=== PATIENT | female | born 1945 | race Caucasian/White ===

== ENCOUNTER → 2018-01-23 13:39 | Outpatient (CLI) | payer MEDICARE, OTHER, SELFPAY ==
--- NOTE | 2018-01-23 | DI.RAD.S_ITS ---
PROCEDURE: XR SHOULDER RT MIN 2V INDICATIONS: PAIN IN RT SHOULDER TECHNIQUE: 3 views of the shoulder were acquired. COMPARISON: None. FINDINGS: Bones: No fractures or dislocations. No suspicious bony lesions. Visualized ribs appear intact. Mild degenerative a.c. joint disease. Marginal spurring humeral head medially indicating glenohumeral joint disease. Soft tissues: No suspicious soft tissue calcifications. IMPRESSION: Degenerative arthritis of the a.c. and glenohumeral joints. Dictated by: Scott Rivero M.D. on 01/23/2018 at 15:39 Approved by: Scott Rivero M.D. on 01/23/2018 at 15:40
--- NOTE | 2018-01-23 | DI.RAD.S_ITS ---
PROCEDURE: XR HIP W PEL IF DONE LT MIN 4V INDICATIONS: BILAT PRIMARY OSTEOARTHRISTIS OF HIP TECHNIQUE: AP pelvis with lateral view(s) of the bilateral hip(s). COMPARISON: [facility], , HIP 2V RIGHT, 08/22/2014, 11:49. FINDINGS: Bones: No fractures or dislocations. Pelvic ring appears intact. No suspicious bony lesions. Degenerative hip joint disease with marginal spurring and subcortical cystic changes. No significant change from last exam. Mild osteitis pubis again noted. Soft tissues: The visualized bowel gas pattern is normal. No suspicious soft tissue calcifications. IMPRESSION: Grade 1 osteoarthritis of the hips. Dictated by: Scott Rivero M.D. on 01/23/2018 at 15:37 Approved by: Scott Rivero M.D. on 01/23/2018 at 15:39
[2018-01-23 14:41] LABS: Add Manual Diff / Slide Review NO; Basophils Percent Auto 0.7 % (0-2); Eosinophils Percent Auto 1.3 % (2-4); Hematocrit 41.2 % (36-46); Hemoglobin 13.9 g/dL (12.0-16.0); Lymphocytes Percent Auto 21.2 % (25-40); Mean Corpuscular HGB Conc 33.8 % (30-36); Mean Corpuscular Hemoglobin 28.8 PG (26-34); Mean Corpuscular Volume 85.1 fL (80-100); Monocytes Percent Auto 4.6 % (3-14); Neutrophils Absolute Auto 6500 /uL (3000-5900); Neutrophils Percent Auto 72.2 % (50-75); Platelet Count 224 X10^3/uL (150-400); Red Blood Cell Count 4.85 X10^6/uL (4.0-5.2); Red Cell Distribution Width 13.5 % (11.6-14.8)
[2018-01-23 15:01] LABS: Prothrombin Time 11.1 SECONDS (10.1-12.7)
[2018-01-23 15:09] LABS: Alanine Aminotransferase 25 IU/L (9-52); Albumin 4.1 g/dL (3.5-5.0); Alkaline Phosphatase 81 U/L (38-126); Aspartate Aminotransferase 28 IU/L (14-36); BUN Creatinine Ratio 23.8 (6-22); Bilirubin Total 0.6 mg/dL (0.2-1.3); Calcium 9.4 mg/dL (8.4-10.2); Estimated Glomerular Filt Rate > 60.0 mL/min (>60); Globulin 3.1 g/dL (1.7-4.1); Glucose 90 mg/dL (80-110); Potassium 4.3 mmol/L (3.4-5.1); Sodium 141 mmol/L (137-145); Total Protein 7.2 g/dL (6.3-8.2)
[2018-01-23 15:10] LABS: Albumin Globulin Ratio 1.3 (1.0-2.8); HEMOLYSIS < 15 (0-50)
== END ==
PROVIDERS: PCP Physician Assistant; Visit Provider Physician Assistant
DX: M25.511 Pain in right shoulder (principal); M16.0 Bilateral primary osteoarthritis of hip; R23.3 Spontaneous ecchymoses; M85.851 Other specified disorders of bone density and structure, right thigh; M19.011 Primary osteoarthritis, right shoulder
CPT/HCPCS: 36415; 73030; 73522; 77080; 80053; 85025; 85610

== ENCOUNTER → 2018-06-05 15:00 | Outpatient (CLI) | payer MEDICARE, OTHER, SELFPAY | PROVIDERS: PCP Physician Assistant | DX: Z23 Encounter for immunization (principal) | CPT/HCPCS: 90471; 90662 ==

== ENCOUNTER → 2018-11-09 10:41 | Outpatient (CLI) | payer MEDICARE, OTHER, SELFPAY ==
--- NOTE | 2018-11-09 | DI.MG.S_ITS ---
BILATERAL DIGITAL SCREENING MAMMOGRAM 3D/2D WITH CAD: 11/09/2018 CLINICAL: Routine screening. Family history of breast cancer. Comparison is made to exams dated: 10/13/2017 mammogram, 07/22/2016 mammogram, and 05/29/2014 mammogram - [facility]. There are scattered fibroglandular elements in both breasts. Current study was also evaluated with a Computer Aided Detection (CAD) system. There is an oval focal asymmetry in the right breast lower inner aspect anterior depth. There are increasing grouped punctate calcifications in the left breast upper outer aspect anterior depth. IMPRESSION: INCOMPLETE: NEEDS ADDITIONAL IMAGING EVALUATION The oval focal asymmetry in the right breast lower inner aspect anterior depth is indeterminate. Additional views with possible ultrasound are recommended. The increasing grouped punctate calcifications in the left breast upper outer aspect anterior depth are indeterminate but may represent a calcifying fibroadenoma. Magnification views as well as additional views with possible ultrasound are recommended. This exam was interpreted at Station ID: [id number]. NOTE: For mammograms, a report in lay terms will be sent to the patient. Approximately 15% of breast malignancies will not be visualized mammographically. In the management of a palpable breast mass, a negative mammogram must not discourage biopsy of a clinically suspicious lesion. Electronically Signed By: Jimbo Bryson M.D. ecl/:11/09/2018 16:37:21 letter sent: Additional Imaging Needed ACR BI-RADS Category 0: Incomplete 3340F
== END ==
PROVIDERS: PCP Physician Assistant; Visit Provider Physician Assistant
DX: Z12.31 Encounter for screening mammogram for malignant neoplasm of breast (principal); Z80.3 Family history of malignant neoplasm of breast
CPT/HCPCS: 77063; 77067

== ENCOUNTER → 2018-12-03 09:58 | Outpatient (CLI) | payer MEDICARE, OTHER, SELFPAY ==
--- NOTE | 2018-12-03 | DI.US.S_ITS ---
LIMITED ULTRASOUND OF RIGHT BREAST: 12/03/2018 CLINICAL: Patient returns today to evaluate a focal asymmetry in the right breast. Comparison is made to exams dated: 12/03/2018 mammogram, 11/09/2018 mammogram, 10/13/2017 mammogram, 07/22/2016 mammogram, 05/29/2014 mammogram, and 05/17/2013 mammogram - [facility]. Ultrasound of the right breast lower inner quadrant and retroareolar regions was performed. There is a dilated duct in the right breast at 4 o'clock in the retroareolar region which may correspond to the mammographic finding. There are no suspicious sonographic findings in the lower inner quadrant. IMPRESSION: BENIGN There is no sonographic evidence of malignancy. The dilated duct in the right breast is benign. Return to annual mammogram screening schedule is recommended. Findings and recommendations were conveyed to the patient. This exam was interpreted at Station ID: [id number]. Electronically Signed By: Fiona franco/:12/03/2018 16:17:02 letter sent: Normal Exam Ultrasound BI-RADS: 2 Benign
--- NOTE | 2018-12-03 | DI.US.S_ITS ---
LIMITED ULTRASOUND OF LEFT BREAST: 12/03/2018 CLINICAL: Patient returns today to evaluate a focal asymmetry in the left breast. Comparison is made to exams dated: 12/03/2018 mammogram, 11/09/2018 mammogram, 10/13/2017 mammogram, 07/22/2016 mammogram, 05/29/2014 mammogram, and 05/17/2013 mammogram - [facility]. Ultrasound of the left breast upper outer quadrant was performed. No abnormalities were seen sonographically in the left breast. IMPRESSION: NEGATIVE There is no sonographic evidence of malignancy. The mammographic finding appears benign, and probably represents degenerating fibroadenoma which is not well seen by ultrasound. Return to annual mammogram screening schedule is recommended. Findings and recommendations were conveyed to the patient. This exam was interpreted at Station ID: [id number]. Electronically Signed By: Fiona franco/:12/03/2018 16:19:56 letter sent: Normal Exam Ultrasound BI-RADS: 1 Negative
--- NOTE | 2018-12-03 | DI.MG.S_ITS ---
BILATERAL DIGITAL DIAGNOSTIC MAMMOGRAM 3D/2D WITH ADDITIONAL VIEWS: 12/03/2018 CLINICAL: Additional evaluation requested from prior study. Comparison is made to exams dated: 11/09/2018 mammogram, 10/13/2017 mammogram, and 07/22/2016 mammogram - [facility]. There are scattered fibroglandular elements in both breasts. There is a 4 mm oval focal asymmetry with a partially circumscribed margin in the right breast at 5 o'clock in the periareolar region at a superficial depth. There is a 3 mm focus of dystrophic punctate rim-like calcifications in the left breast at 1 o'clock anterior depth associated with a hypodense round structure. No other significant masses or calcifications are seen in either breast. IMPRESSION: INCOMPLETE: NEEDS ADDITIONAL IMAGING EVALUATION The 3 mm oval focal asymmetry in the right breast at 5 o'clock in the retroareolar region is indeterminate. An ultrasound is recommended which was performed. The 3 mm focus of calcifications in the left breast at 1 o'clock anterior depth has a differential diagnosis of a degenerating fibroadenoma and oil cyst but is indeterminate. An ultrasound is recommended which has been performed. This exam was interpreted at Station ID: [id number]. NOTE: For mammograms, a report in lay terms will be sent to the patient. Approximately 15% of breast malignancies will not be visualized mammographically. In the management of a palpable breast mass, a negative mammogram must not discourage biopsy of a clinically suspicious lesion. Electronically Signed By: Fiona franco/:12/03/2018 16:12:18 ACR BI-RADS Category 0: Incomplete 3340F
== END ==
PROVIDERS: PCP Physician Assistant; Visit Provider Physician Assistant
DX: R92.8 Other abnormal and inconclusive findings on diagnostic imaging of breast (principal); R92.1 Mammographic calcification found on diagnostic imaging of breast; N64.89 Other specified disorders of breast
CPT/HCPCS: 76642; 77066; G0279

== ENCOUNTER → 2019-06-20 15:52 | Outpatient (CLI) | payer MEDICARE, OTHER, SELFPAY | PROVIDERS: PCP Physician Assistant | DX: Z23 Encounter for immunization (principal) | CPT/HCPCS: 90471; 90662 ==

== ENCOUNTER → 2020-03-25 16:27 | Outpatient (CLI) | payer MEDICARE, OTHER, SELFPAY ==
--- NOTE | 2020-03-25 | DI.MG.S_ITS ---
BILATERAL DIGITAL SCREENING MAMMOGRAM 3D/2D WITH CAD: 03/25/2020 CLINICAL: Routine screening. Family history of breast cancer. Comparison is made to exams dated: 12/03/2018 mammogram, 11/09/2018 mammogram, and 10/13/2017 mammogram - [facility]. There are scattered fibroglandular elements in both breasts. Current study was also evaluated with a Computer Aided Detection (CAD) system. There are benign calcifications in both breasts. There also are biopsy clips in the right breast. No significant masses, calcifications, or other findings are seen in either breast. There has been no significant interval change. IMPRESSION: There is no mammographic evidence of malignancy. A 1 year screening mammogram is recommended. This exam was interpreted at Station ID: [id number]. NOTE: For mammograms, a report in lay terms will be sent to the patient. Approximately 15% of breast malignancies will not be visualized mammographically. In the management of a palpable breast mass, a negative mammogram must not discourage biopsy of a clinically suspicious lesion. Electronically Signed By: Isra loo/jas:03/25/2020 18:10:37 letter sent: Normal Exam ACR BI-RADS Category 2: Benign Finding(s) 3342F
== END ==
PROVIDERS: PCP Physician Assistant; Referring Provider Physician Assistant; Visit Provider Physician Assistant
DX: Z12.31 Encounter for screening mammogram for malignant neoplasm of breast (principal); Z80.3 Family history of malignant neoplasm of breast
CPT/HCPCS: 77063; 77067

== ENCOUNTER → 2020-06-11 | Outpatient (CLI) | payer MEDICARE, OTHER, SELFPAY | PROVIDERS: PCP Physician Assistant; Referring Provider Internal Medicine; Visit Provider Internal Medicine | DX: Z23 Encounter for immunization (principal) | CPT/HCPCS: 90471; 90662 ==

== ENCOUNTER → 2020-11-07 12:19 | Outpatient (CLI) | payer MEDICARE, OTHER, SELFPAY | PROVIDERS: PCP Physician Assistant; Visit Provider Nurse Practitioner | DX: N34.3 Urethral syndrome, unspecified (principal); N89.8 Other specified noninflammatory disorders of vagina | CPT/HCPCS: 87086; 87210 ==

== ENCOUNTER → 2020-12-03 13:00 | Outpatient (CLI) | payer MEDICARE, OTHER, SELFPAY | PROVIDERS: PCP Physician Assistant; Referring Provider Physician Assistant; Visit Provider Physician Assistant | DX: M85.862 Other specified disorders of bone density and structure, left lower leg (principal); M85.861 Other specified disorders of bone density and structure, right lower leg; M85.88 Other specified disorders of bone density and structure, other site; Z78.0 Asymptomatic menopausal state | CPT/HCPCS: 77080 ==

== ENCOUNTER 2021-03-25 13:30 | Outpatient (RCR) | payer MEDICARE, OTHER, SELFPAY ==
--- NOTE | 2021-01-15 17:46 | PT.OIE ---
Current Diagnoses Female genital prolapse, unspecified (01/15/21) Frequency of micturition (01/15/21) Past Medical History (Last Updated 12/10/20 @ 13:26 by Nadira Day MD) H/O vaginal delivery No significant medical problems Visit Care Team Role Provider Type Desi Suh PA-C Family Provider Non-Staff Primary Care Provider Specialty: Internal Medicine Address: [address] [place] [address], [id number] Email: [email or web address] Nadira Day MD Attending Provider Physician Referring Provider Specialty: MONTESSORI PARAPROFESSIONAL Address: [address] [place] [address], [address] Email: Physical Therapy Initial Evaluation PT-OP-A Visit Information Start: 01/12/21 17:25 Freq: Status: Active Protocol: Document 01/15/21 14:21 LRN (Rec: 01/15/21 17:45 LRN [id number]) Out-Patient Physical Therapy Visit Information Visit Information Visit Type Initial Evaluation Visit Start Time 14:23 Visit Stop Time 15:09 Total Visit Minutes 46 Visit Number 1 Evaluation Information Evaluation Date 01/15/21 Precautions Precautions Slight amount of vertigo, 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 PT-OP-B Current Condition Start: 01/12/21 17:25 Freq: Status: Active Protocol: Document 01/15/21 14:21 LRN (Rec: 01/15/21 17:45 LRN [id number]) Current Condition History of Current Condition Onset Date 2 months ago Current Complaints Pressure & urgency to urinate. History of Current Condition Has had problem for a long time, but became pronounced 2 months ago and pt thought she had vaginal infection, but found UA negative. Has pressure and urgency, but no pain with urination, ruled out UTI. i month ago saw Dr. James told to go PT to get ex 's that might work. Dr. Day said bladder has dropped. Has done ex's from a long time ago. Was doing PF ex's that was given to her at a PF class and did them on/off but is now doing them again. Looking in mirror at night can see directly bladder. In morning vagina is closed and can't see the bladder. Has had 3 vaginal childbirths without complications. Future Testing and Treatments Planned Pessary. Treatment Goals Patient/Caregiver Goals Pt goal is to reduce the cystocele with exercise Reduce urge and frequency. Pt states unrelated to this condition she wants to strength & do old PT ([employer]) exercises 3x/week. 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 Emeterio chi 5-6x/week Personal Factors Other Personal Factors That May Effect Osteopenia, Chronic Back pain, Therapy/Recovery arthritis, bruises easily. PT-OP-C Subjective Start: 01/12/21 17:25 Freq: Status: Active Protocol: Document 01/15/21 14:21 LRN (Rec: 01/15/21 17:45 LRN [id number]) Patient Questionnaires Pelvic Pain and Urgency/Frequency Patient Symptom Scale Pelvic Pain Score 7 PT-OP-I Pelvic Floor Start: 01/12/21 17:25 Freq: Status: Active Protocol: Document 01/15/21 14:21 LRN (Rec: 01/15/21 17:45 LRN [id number]) Pelvic Floor Assessment Urine Urinary Symptoms Prolapse,Falling Out Feeling/ Heavy Other Urinary Symptoms Not sure if she has incomplete emptying. Not a strong flow Leakage Size Small Leaks Per Day rarely Voiding Frequency 8-10 Nocturia 2 Pads Used In 24 Hours none Prolapse Cystocele Grade 2 Prolapse Comments Bladder is almost at vaginal opening, but does not extend past the opening in supine. Perineal Descent Resting Present Bearing Present Contraction Ability Voluntary Contraction Weak Manual Muscle Testing Left 0 Manual Muscle Testing Right 0 Manual Muscle Testing Anterior 0 Manual Muscle Testing Posterior 3 Comments Pelvic Floor Comments Endurance: Holds posterior PF contraction 10 secs, minimal contraction felt anteriorly and no contraction from lateral carson. Quick Contractions: Clements with 2 fingers in vaginal canal, but no contraction R lateral wall. PT-OP-J Posture/Palpation/Skin Start: 01/12/21 17:25 Freq: Status: Active Protocol: Document 01/15/21 14:21 LRN (Rec: 01/15/21 17:45 LRN [id number]) Posture Evaluation Position Standing Head/C-Spine Posture Forward Head T-Spine Posture Increased Kyphosis L-Spine Posture Flattened Shoulder Posture (L) Elevated Arm Posture (L) Neutral,(R) Neutral Pelvis Posture Anteriorly Tilted Weight Distribution Balanced Comments Posture Comments R breast is low, PT-OP-K Range of Motion Start: 01/12/21 17:25 Freq: Status: Active Protocol: Document 01/15/21 14:21 LRN (Rec: 01/15/21 17:45 LRN [id number]) Lumbar Spine Range of Motion Lumbar Spine Active Degrees Testing Position Standing Flexion 85 Extension 15 Rotation Left 20 Rotation Right 20 Lateral Flexion Left 10 Lateral Flexion Right 15 Comments 75 hip flex 10 hip ext Hip Goniometric Range of Motion Hip Right Passive Testing Position Supine Internal Rotation 25 External Rotation 80 Comments Decreased Ilipsoas length Left Passive Testing Position Supine Internal Rotation 30 External Rotation 75 PT-OP-M Strength Start: 01/12/21 17:25 Freq: Status: Active Protocol: Document 01/15/21 14:21 LRN (Rec: 01/15/21 17:45 LRN [id number]) Trunk Strength Trunk Manual Muscle Testing Testing Position Supine Core Stabilization Good stability during MMT of LE's. Hip Strength Hip Manual Muscle Testing Right Flexion (L2) 5 Normal Extension (S1) 5 Normal Abduction 4 Good Adduction 5 Normal External Rotation 4 Good Internal Rotation 4 Good Left Flexion (L2) 5 Normal Extension (S1) 5 Normal Abduction 5 Normal Adduction 3 Fair External Rotation 3 Fair Internal Rotation 4 Good PT-OP-Q Treatments Start: 01/12/21 17:25 Freq: Status: Active Protocol: Document 01/15/21 14:21 LRN (Rec: 01/15/21 17:45 LRN [id number]) Self-Care/Home Management Treatment Education Other Education Discussed results of evaluation, goals, and plan of care. Brief education discussion of abdominal pressures and education in use of breathing to decrease intra-abdominal pressure with transfers and exercise. Activities Self-Care/Home Management Activities Issued and reviewed with pt completion of bladder diary (2 forms) with explanations of each column heading for proper filling of form. Issued & reviewed HEP: Kegels for Quick Flicks and Long holds. PT-OP-T Assessment and Plan Start: 01/12/21 17:25 Freq: Status: Active Protocol: Document 01/15/21 14:21 LRN (Rec: 01/15/21 17:45 LRN [id number]) Physical Therapy Assessment Rehab Potential Rehabilitation Potential Fair Evaluation Complexity Number of Personal Factors/Comorbidities 3 or More Number of Body Systems Impaired 4 or More Clinical Presentation at Evaluation Evolving Impairments Impairments ROM,Strength Other Impairments Urinary frequency Urinary urge incontinence Goals Four Impairment Increased voiding frequency Short Term Goal (STG) Pt will be educated in inflammatory foods, foods to avoid, and recommended fluid guidelines. STG Duration 02/05/21 Cadd Instructor Goal (LTG) Decreased urinary frequency to every 2-3 hours or 7-8 times per day. LTG Duration 04/15/21 Three Impairment Decreased PF strength with grade 3 cystocele Short Term Goal (STG) Pt will be educated in proper breathing techniques for exercise and participating in appropriate exercises to decrease strain on PF. STG Duration 02/16/21 Cadd Instructor Goal (LTG) Reduce cystocele effects with exercise as noted by bladder hanging down. LTG Duration 04/15/21 Two Impairment Urge incontinence and increased frequency Short Term Goal (STG) Pt educated in proper PF care and urge delay technique. STG Duration 01/29/21 Jail Goal (LTG) Pt will have decreased urge incontinence and decreased pressure in pelvic region. LTG Duration 04/15/21 One Impairment Lacks appropriate self care HEP Short Term Goal (STG) Pt will be educated in proper breathing techniques with body mechanics and transfers. STG Duration 02/23/21 Cadd Instructor Goal (LTG) Pt will be independent in self care HEP of PF, hip and low back exercises. LTG Duration 04/15/21 Assessment Summary Assessment Pt is a 75 yo female who presents with a grade II cystocele as visualized in a supine position with urge incontinence and increased frequency of voiding. The pt will benefit from skilled physical therapy for pt education in a self care HEP, PF self care education, education in appropriate ex's for reducing stress on the PF, strengthening and coordination ex's for PF and LE's, flexibilty exercises and progression of PF strengthening. Manual therapy may be needed for PF soft tissues and for her low back pain and hip tightness. Physical Therapy Plan Frequency and Duration Frequency of Treatment 1x/Week Plan of Care Start Date 01/15/21 Plan of Care End Date 04/15/21 Therapeutic Interventions Therapeutic Interventions Coordination Training,Home Exercise Program,Manual Therapy,Neuromuscular Re- education,Patient/Caregiver Education,Self-Care/Home Management,Soft Tissue Mobilization,Therapeutic Activities,Therapeutic Exercises Next Visit Focus/Plan Next Note Type Treatment Note Next Visit Plan Review bladder diary and make recommendations as needed. Education in urge deference technique, breathing techniques with exercise, transfers and proper body mechanics. LE flexibility ( hip IR) & strengthening (AD/ER /IR left; AB/ER/IR right), progression of PF strengthening. Manual therapy may be needed for PF soft tissues of lateral carson, and for her low back pain. Possible use of E-Stim for PF contraction awareness training .
--- NOTE | 2021-01-15 17:46 | PT.OPPOC ---
Physical, Occupational & Speech Therapy At [facility] Current Diagnoses Female genital prolapse, unspecified (01/15/21) Frequency of micturition (01/15/21) Visit Care Team Role Provider Type Desi Suh PA-C Family Provider Non-Staff Primary Care Provider Specialty: Internal Medicine Address: [address] [place] [address], [id number] Email: [email or web address] Nadira Day MD Attending Provider Physician Referring Provider Specialty: PIN DRAFTER Address: [address] [place] [address], [address] Email: Plan Of Care PT-OP-T Assessment and Plan Start: 01/12/21 17:25 Freq: Status: Active Protocol: Document 01/15/21 14:21 LRN (Rec: 01/15/21 17:45 LRN [id number]) Physical Therapy Assessment Rehab Potential Rehabilitation Potential Fair Evaluation Complexity Number of Personal Factors/Comorbidities 3 or More Number of Body Systems Impaired 4 or More Clinical Presentation at Evaluation Evolving Impairments Impairments ROM,Strength Other Impairments Urinary frequency Urinary urge incontinence Goals Four Impairment Increased voiding frequency Short Term Goal (STG) Pt will be educated in inflammatory foods, foods to avoid, and recommended fluid guidelines. STG Duration 02/05/21 Petroleum Sampler Goal (LTG) Decreased urinary frequency to every 2-3 hours or 7-8 times per day. LTG Duration 04/15/21 Three Impairment Decreased PF strength with grade 3 cystocele Short Term Goal (STG) Pt will be educated in proper breathing techniques for exercise and participating in appropriate exercises to decrease strain on PF. STG Duration 02/16/21 Alf Goal (LTG) Reduce cystocele effects with exercise as noted by bladder hanging down. LTG Duration 04/15/21 Two Impairment Urge incontinence and increased frequency Short Term Goal (STG) Pt educated in proper PF care and urge delay technique. STG Duration 01/29/21 Petroleum Sampler Goal (LTG) Pt will have decreased urge incontinence and decreased pressure in pelvic region. LTG Duration 04/15/21 One Impairment Lacks appropriate self care HEP Short Term Goal (STG) Pt will be educated in proper breathing techniques with body mechanics and transfers. STG Duration 02/23/21 Petroleum Sampler Goal (LTG) Pt will be independent in self care HEP of PF, hip and low back exercises. LTG Duration 04/15/21 Assessment Summary Assessment Pt is a 75 yo female who presents with a grade II cystocele as visualized in a supine position with urge incontinence and increased frequency of voiding. The pt will benefit from skilled physical therapy for pt education in a self care HEP, PF self care education, education in appropriate ex's for reducing stress on the PF, strengthening and coordination ex's for PF and LE's, flexibilty exercises and progression of PF strengthening. Manual therapy may be needed for PF soft tissues and for her low back pain and hip tightness. Physical Therapy Plan Frequency and Duration Frequency of Treatment 1x/Week Plan of Care Start Date 01/15/21 Plan of Care End Date 04/15/21 Therapeutic Interventions Therapeutic Interventions Coordination Training,Home Exercise Program,Manual Therapy,Neuromuscular Re- education,Patient/Caregiver Education,Self-Care/Home Management,Soft Tissue Mobilization,Therapeutic Activities,Therapeutic Exercises Next Visit Focus/Plan Next Note Type Treatment Note Next Visit Plan Review bladder diary and make recommendations as needed. Education in urge deference technique, breathing techniques with exercise, transfers and proper body mechanics. LE flexibility ( hip IR) & strengthening (AD/ER /IR left; AB/ER/IR right), progression of PF strengthening. Manual therapy may be needed for PF soft tissues of lateral carson, and for her low back pain. Possible use of E-Stim for PF contraction awareness training . Plan of Care Dates Plan of Care Start Date 01/15/21 Plan of Care End Date 04/15/21 Electronically Signed by: Valentina Lowe, PT 01/15/21 1326 Please Sign and Return: I have reviewed this Plan of Care and certify that the skilled therapy services above are required to meet the patient?s needs. Physician Signature Date Printed Name and Credentials Clinical Instructor Signature Printed Name and Credentials
--- NOTE | 2021-01-20 15:19 | PT.OTN ---
Current Diagnoses Low back pain (01/20/21) Muscle weakness (generalized) (01/20/21) Female genital prolapse, unspecified (01/20/21) Frequency of micturition (01/20/21) Physical Therapy Treatment Note PT-OP-A Visit Information Start: 01/12/21 17:25 Freq: Status: Active Protocol: Document 01/20/21 09:07 LRN (Rec: 01/20/21 09:51 LRN [id number]) Out-Patient Physical Therapy Visit Information Visit Information Visit Type Treatment Note Visit Start Time 09:07 Visit Stop Time 09:48 Total Visit Minutes 41 Evaluation Information Evaluation Date 01/15/21 Precautions Precautions Slight amount of vertigo, 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 PT-OP-B Current Condition Start: 01/12/21 17:25 Freq: Status: Active Protocol: Document 01/15/21 14:21 LRN (Rec: 01/15/21 17:45 LRN [id number]) Current Condition History of Current Condition Onset Date 2 months ago Current Complaints Pressure & urgency to urinate. History of Current Condition Has had problem for a long time, but became pronounced 2 months ago and pt thought she had vaginal infection, but found UA negative. Has pressure and urgency, but no pain with urination, ruled out UTI. i month ago saw Dr. James told to go PT to get ex 's that might work. Dr. Day said bladder has dropped. Has done ex's from a long time ago. Was doing PF ex's that was given to her at a PF class and did them on/off but is now doing them again. Looking in mirror at night can see directly bladder. In morning vagina is closed and can't see the bladder. Has had 3 vaginal childbirths without complications. Future Testing and Treatments Planned Pessary. Treatment Goals Patient/Caregiver Goals Pt goal is to reduce the cystocele with exercise Reduce urge and frequency. Pt states unrelated to this condition she wants to strength & do old PT ([facility]) exercises 3x/week. 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 Emeterio chi 5-6x/week Personal Factors Other Personal Factors That May Effect Osteopenia, Chronic Back pain, Therapy/Recovery arthritis, bruises easily. PT-OP-C Subjective Start: 01/12/21 17:25 Freq: Status: Active Protocol: Document 01/20/21 09:07 LRN (Rec: 01/20/21 09:51 LRN [id number]) OP-PT Subjective Patient Comments Patient Comments Forgot bladder diary but has 2 days. States the stream dribbles so time to urinate is long. Doesn't feel she is empying her bladder (just urinated at home and feels she has to urinate again). Requests looking at lubricant from recommmendation by Dr. Padilla. PT-OP-I Pelvic Floor Start: 01/12/21 17:25 Freq: Status: Active Protocol: Document 01/20/21 09:07 LRN (Rec: 01/20/21 09:51 LRN [id number]) Pelvic Floor Assessment Prolapse Cystocele Grade 3 Prolapse Comments In standing bladder is protuding out of vaginal canal . PT-OP-J Posture/Palpation/Skin Start: 01/12/21 17:25 Freq: Status: Active Protocol: Document 01/15/21 14:21 LRN (Rec: 01/15/21 17:45 LRN [id number]) Posture Evaluation Position Standing Head/C-Spine Posture Forward Head T-Spine Posture Increased Kyphosis L-Spine Posture Flattened Shoulder Posture (L) Elevated Arm Posture (L) Neutral,(R) Neutral Pelvis Posture Anteriorly Tilted Weight Distribution Balanced Comments Posture Comments R breast is low, PT-OP-K Range of Motion Start: 01/12/21 17:25 Freq: Status: Active Protocol: Document 01/15/21 14:21 LRN (Rec: 01/15/21 17:45 LRN [id number]) Lumbar Spine Range of Motion Lumbar Spine Active Degrees Testing Position Standing Flexion 85 Extension 15 Rotation Left 20 Rotation Right 20 Lateral Flexion Left 10 Lateral Flexion Right 15 Comments 75 hip flex 10 hip ext Hip Goniometric Range of Motion Hip Right Passive Testing Position Supine Internal Rotation 25 External Rotation 80 Comments Decreased Ilipsoas length Left Passive Testing Position Supine Internal Rotation 30 External Rotation 75 PT-OP-M Strength Start: 01/12/21 17:25 Freq: Status: Active Protocol: Document 01/15/21 14:21 LRN (Rec: 01/15/21 17:45 LRN [id number]) Trunk Strength Trunk Manual Muscle Testing Testing Position Supine Core Stabilization Good stability during MMT of LE's. Hip Strength Hip Manual Muscle Testing Right Flexion (L2) 5 Normal Extension (S1) 5 Normal Abduction 4 Good Adduction 5 Normal External Rotation 4 Good Internal Rotation 4 Good Left Flexion (L2) 5 Normal Extension (S1) 5 Normal Abduction 5 Normal Adduction 3 Fair External Rotation 3 Fair Internal Rotation 4 Good PT-OP-Q Treatments Start: 01/12/21 17:25 Freq: Status: Active Protocol: Document 01/20/21 09:07 LRN (Rec: 01/20/21 09:51 LRN [id number]) Self-Care/Home Management Treatment Education Other Education Reviewed bladder diary and discussed recommendations to change in routine. Discussed use of lubricants to decrease Discussed options of care for prolapse Discussed at length pt activity level and ex's that she is doing (HEP, [employer]reg[employer] of ex, and Ex gym ex's). Educated pt in pelvic anatomy with model and handouts. Activities Self-Care/Home Management Activities I/S pt briefly in proper breathing with daily movements and transfers, and recommended pt avoid lifting arms overhead with ex, avoid abdominal strengthening and jumping/jogging ex's. I/S pt briefly for proper breathing with exercises on gregoria. PT-OP-T Assessment and Plan Start: 01/12/21 17:25 Freq: Status: Active Protocol: Document 01/20/21 09:07 LRN (Rec: 01/20/21 09:51 LRN [id number]) Physical Therapy Assessment Goals Four Impairment Increased voiding frequency Short Term Goal (STG) Pt will be educated in inflammatory foods, foods to avoid, and recommended fluid guidelines. STG Duration 02/05/21 Him Specialist Goal (LTG) Decreased urinary frequency to every 2-3 hours or 7-8 times per day. LTG Duration 04/15/21 Three Impairment Decreased PF strength with grade 3 cystocele Short Term Goal (STG) Pt will be educated in proper breathing techniques for exercise and participating in appropriate exercises to decrease strain on PF. (01/20/21: Pt educated in proper breathing technique for exercise, needs practical review) STG Duration 02/16/21 (01/20/21: Progressed ) Usp Goal (LTG) Reduce cystocele effects with exercise as noted by bladder hanging down. LTG Duration 04/15/21 Two Impairment Urge incontinence and increased frequency Short Term Goal (STG) Pt educated in proper PF care and urge delay technique. STG Duration 01/29/21 Usp Goal (LTG) Pt will have decreased urge incontinence and decreased pressure in pelvic region. LTG Duration 04/15/21 One Impairment Lacks appropriate self care HEP Short Term Goal (STG) Pt will be educated in proper breathing techniques with body mechanics and transfers. STG Duration 02/23/21 Usp Goal (LTG) Pt will be independent in self care HEP of PF, hip and low back exercises. LTG Duration 04/15/21 Assessment Summary Assessment Pt bladder in standing is protruding outside her vaginal canal. Supine, bladder at edge of vaginal canal. Pt redness on external PF, not visible internal vagina due to bladder. When assessing PF in supine, pt needed to urinate; therefore did not push bladder in to visualize for vaginal canal redness. Pt receptive to education and feels she needs more education . Pt reporting urinating first part of stream is normal 15-30 and last 1/2 is dribbling. 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 Physical Therapy Plan Frequency and Duration Frequency of Treatment 1x/Week Plan of Care Start Date 01/15/21 Plan of Care End Date 04/15/21 Next Visit Focus/Plan Next Note Type Treatment Note Next Visit Plan Review complete bladder diary and make recommendations as needed. Educate in inflammatory foods, foods to avoid, and recommended fluid guidelines, & in proper PF care and urge delay technique. Practice breathing techniques with transfers, proper body mechanics, and with exercise. Add to HEP: LE flexibility (hip IR) & strengthening (AD/ER/IR left; AB/ER/IR right), progression of PF strengthening. Manual therapy may be needed for PF soft tissues of lateral carson, and for her low back pain. Possible use of E-Stim for PF contraction awareness training .
--- NOTE | 2021-01-29 12:27 | PT.OTN ---
Current Diagnoses Low back pain (01/29/21) Muscle weakness (generalized) (01/29/21) Female genital prolapse, unspecified (01/29/21) Frequency of micturition (01/29/21) Physical Therapy Treatment Note PT-OP-A Visit Information Start: 01/12/21 17:25 Freq: Status: Active Protocol: Document 01/29/21 11:16 LRN (Rec: 01/29/21 12:26 LRN [id number]) Out-Patient Physical Therapy Visit Information Visit Information Visit Type Treatment Note Visit Start Time 11:16 Visit Stop Time 12:11 Total Visit Minutes 55 Visit Number 3 Evaluation Information Evaluation Date 01/15/21 Precautions Precautions Slight amount of vertigo, 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 PT-OP-B Current Condition Start: 01/12/21 17:25 Freq: Status: Active Protocol: Document 01/15/21 14:21 LRN (Rec: 01/15/21 17:45 LRN [id number]) Current Condition History of Current Condition Onset Date 2 months ago Current Complaints Pressure & urgency to urinate. History of Current Condition Has had problem for a long time, but became pronounced 2 months ago and pt thought she had vaginal infection, but found UA negative. Has pressure and urgency, but no pain with urination, ruled out UTI. i month ago saw Dr. James told to go PT to get ex 's that might work. Dr. Day said bladder has dropped. Has done ex's from a long time ago. Was doing PF ex's that was given to her at a PF class and did them on/off but is now doing them again. Looking in mirror at night can see directly bladder. In morning vagina is closed and can't see the bladder. Has had 3 vaginal childbirths without complications. Future Testing and Treatments Planned Pessary. Treatment Goals Patient/Caregiver Goals Pt goal is to reduce the cystocele with exercise Reduce urge and frequency. Pt states unrelated to this condition she wants to strength & do old PT ([facility]) exercises 3x/week. 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 Emeterio chi 5-6x/week Personal Factors Other Personal Factors That May Effect Osteopenia, Chronic Back pain, Therapy/Recovery arthritis, bruises easily. PT-OP-C Subjective Start: 01/12/21 17:25 Freq: Status: Active Protocol: Document 01/29/21 11:16 LRN (Rec: 01/29/21 12:26 LRN [id number]) OP-PT Subjective Patient Comments Patient Comments Pt to see Dr Day 02/15/21 and would like to have therapy after seeing her. Discussed with pt what she found in her research of options of care. States she does not leak. She is starting to feel discomfort in the PF in the opening. Thinks it might be pressure and soreness. PT-OP-I Pelvic Floor Start: 01/12/21 17:25 Freq: Status: Active Protocol: Document 01/20/21 09:07 LRN (Rec: 01/20/21 09:51 LRN [id number]) Pelvic Floor Assessment Prolapse Cystocele Grade 3 Prolapse Comments In standing bladder is protuding out of vaginal canal . PT-OP-J Posture/Palpation/Skin Start: 01/12/21 17:25 Freq: Status: Active Protocol: Document 01/15/21 14:21 LRN (Rec: 01/15/21 17:45 LRN [id number]) Posture Evaluation Position Standing Head/C-Spine Posture Forward Head T-Spine Posture Increased Kyphosis L-Spine Posture Flattened Shoulder Posture (L) Elevated Arm Posture (L) Neutral,(R) Neutral Pelvis Posture Anteriorly Tilted Weight Distribution Balanced Comments Posture Comments R breast is low, PT-OP-K Range of Motion Start: 01/12/21 17:25 Freq: Status: Active Protocol: Document 01/15/21 14:21 LRN (Rec: 01/15/21 17:45 LRN [id number]) Lumbar Spine Range of Motion Lumbar Spine Active Degrees Testing Position Standing Flexion 85 Extension 15 Rotation Left 20 Rotation Right 20 Lateral Flexion Left 10 Lateral Flexion Right 15 Comments 75 hip flex 10 hip ext Hip Goniometric Range of Motion Hip Right Passive Testing Position Supine Internal Rotation 25 External Rotation 80 Comments Decreased Ilipsoas length Left Passive Testing Position Supine Internal Rotation 30 External Rotation 75 PT-OP-M Strength Start: 01/12/21 17:25 Freq: Status: Active Protocol: Document 01/15/21 14:21 LRN (Rec: 01/15/21 17:45 LRN [id number]) Trunk Strength Trunk Manual Muscle Testing Testing Position Supine Core Stabilization Good stability during MMT of LE's. Hip Strength Hip Manual Muscle Testing Right Flexion (L2) 5 Normal Extension (S1) 5 Normal Abduction 4 Good Adduction 5 Normal External Rotation 4 Good Internal Rotation 4 Good Left Flexion (L2) 5 Normal Extension (S1) 5 Normal Abduction 5 Normal Adduction 3 Fair External Rotation 3 Fair Internal Rotation 4 Good PT-OP-Q Treatments Start: 01/12/21 17:25 Freq: Status: Active Protocol: Document 01/29/21 11:16 LRN (Rec: 01/29/21 12:26 LRN [id number]) Therapeutic Exercises Supine Exercises Deep Breathing Supine Exercise Name Deep Breathing, 5 sec breaths Reps/Minutes 4' Wedge/PF contraction Supine Exercise Name Wedge PF contraction Reps/Minutes 6' Comments Phys cuing and v cuing at vagina Wedge/roll in/out with DB/TB &towel roll Supine Exercise Name Wedge/roll in/out with DB/TB & towel rol Side bilateral Reps/Minutes 8' Comments Extra time for training Standing Exercises PF/Hamstring stretch Standing Exercise Name PF/Hamstring stretch Reps/Minutes 7' Comments Much v cuing for positioning, holding, vernon, relaxing . Self-Care/Home Management Treatment Education Patient Education Home Exercise Program Other Education Reveiw and discussion of PF bladder diary. Discussed with pt what she found in her research of options of care. Discussed if therapy will be helpful if she decides to use a pessary. Discussed plan of care with pt agreeable to continue therapy through March for further strengthening. Activities Self-Care/Home Management Activities Issued & reviewed HEP: LE roll in/outs on wedge: Alignment, Deep Breathing (DB) , Abdominal action throug DB & Abdominal action theorugh Pelvic Floor ex. Handout for standing Hamstring stretch for PF strengthening positioning. Reviewed pt's existing ex's with recommendations of modifications or dc of ex. PT-OP-T Assessment and Plan Start: 01/12/21 17:25 Freq: Status: Active Protocol: Document 01/29/21 11:16 LRN (Rec: 01/29/21 12:26 LRN [id number]) Physical Therapy Assessment Goals Four Impairment Increased voiding frequency Short Term Goal (STG) Pt will be educated in inflammatory foods, foods to avoid, and recommended fluid guidelines. STG Duration 02/05/21 Senior Analyst Goal (LTG) Decreased urinary frequency to every 2-3 hours or 7-8 times per day. LTG Duration 04/15/21 Three Impairment Decreased PF strength with grade 3 cystocele Short Term Goal (STG) Pt will be educated in proper breathing techniques for exercise and participating in appropriate exercises to decrease strain on PF. (01/20/21: Pt educated in proper breathing technique for exercise, needs practical review) STG Duration 02/16/21 (01/20/21: Progressed ) Senior Analyst Goal (LTG) Reduce cystocele effects with exercise as noted by bladder hanging down. LTG Duration 04/15/21 (01/29/21: Progressing) Two Impairment Urge incontinence and increased frequency Short Term Goal (STG) Pt educated in proper PF care and urge delay technique. STG Duration 01/29/21 Residential Goal (LTG) Pt will have decreased urge incontinence and decreased pressure in pelvic region. LTG Duration 04/15/21 One Impairment Lacks appropriate self care HEP Short Term Goal (STG) Pt will be educated in proper breathing techniques with body mechanics and transfers. STG Duration 02/23/21 Senior Analyst Goal (LTG) Pt will be independent in self care HEP of PF, hip and low back exercises. LTG Duration 04/15/21 Assessment Summary Assessment Held review of bladder diary due to pt's need to discuss plan of care, recommendations of alternative care (surgery, pessary vs PT) and review of her self care program. Pt agreeable to learning more PF strengthening ex's prior to use of pessary. Pt felt she was able to have bladder pulled up in standing HS stretch position and held until almost upright. Pt may not need discussion on fo Physical Therapy Plan Frequency and Duration Frequency of Treatment 1x/Week Plan of Care Start Date 01/15/21 Plan of Care End Date 04/15/21 Next Visit Focus/Plan Next Note Type Treatment Note Next Visit Plan Review complete bladder diary from last session and make recommendations as needed. If needed: Educate in inflammatory foods, foods to avoid, and recommended fluid guidelines, & in proper PF care and urge delay technique. Review proper breathing techniques with transfers, proper body mechanics, and with exercise. Add to HEP: LE flexibility (hip IR) & strengthening (AD/ER/IR left; AB/ER/IR right), progression of PF strengthening. Manual therapy may be needed for PF soft tissues of lateral carson, and for her low back pain. Use of E-Stim for PF contraction awareness training if PF tissue health is good.
--- NOTE | 2021-02-12 12:24 | PT.OTN ---
Current Diagnoses Low back pain (02/12/21) Muscle weakness (generalized) (02/12/21) Female genital prolapse, unspecified (02/12/21) Frequency of micturition (02/12/21) Physical Therapy Treatment Note PT-OP-A Visit Information Start: 01/12/21 17:25 Freq: Status: Active Protocol: Document 02/12/21 11:23 LRN (Rec: 02/12/21 12:23 LRN [id number]) Out-Patient Physical Therapy Visit Information Visit Information Visit Type Treatment Note Visit Start Time 11:23 Visit Stop Time 12:04 Total Visit Minutes 41 Visit Number 4 Evaluation Information Evaluation Date 01/15/21 Precautions Precautions Slight amount of vertigo, 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 PT-OP-B Current Condition Start: 01/12/21 17:25 Freq: Status: Active Protocol: Document 01/15/21 14:21 LRN (Rec: 01/15/21 17:45 LRN [id number]) Current Condition History of Current Condition Onset Date 2 months ago Current Complaints Pressure & urgency to urinate. History of Current Condition Has had problem for a long time, but became pronounced 2 months ago and pt thought she had vaginal infection, but found UA negative. Has pressure and urgency, but no pain with urination, ruled out UTI. i month ago saw Dr. James told to go PT to get ex 's that might work. Dr. Day said bladder has dropped. Has done ex's from a long time ago. Was doing PF ex's that was given to her at a PF class and did them on/off but is now doing them again. Looking in mirror at night can see directly bladder. In morning vagina is closed and can't see the bladder. Has had 3 vaginal childbirths without complications. Future Testing and Treatments Planned Pessary. Treatment Goals Patient/Caregiver Goals Pt goal is to reduce the cystocele with exercise Reduce urge and frequency. Pt states unrelated to this condition she wants to strength & do old PT ([facility]) exercises 3x/week. 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 Emeterio chi 5-6x/week Personal Factors Other Personal Factors That May Effect Osteopenia, Chronic Back pain, Therapy/Recovery arthritis, bruises easily. PT-OP-C Subjective Start: 01/12/21 17:25 Freq: Status: Active Protocol: Document 02/12/21 11:23 LRN (Rec: 02/12/21 12:23 LRN [id number]) OP-PT Subjective Patient Comments Patient Comments States she notes no change. Seeing Dr Fellow 02/15/21. has questions regarding therapy and pessary. PT-OP-I Pelvic Floor Start: 01/12/21 17:25 Freq: Status: Active Protocol: Document 01/20/21 09:07 LRN (Rec: 01/20/21 09:51 LRN [id number]) Pelvic Floor Assessment Prolapse Cystocele Grade 3 Prolapse Comments In standing bladder is protuding out of vaginal canal . PT-OP-J Posture/Palpation/Skin Start: 01/12/21 17:25 Freq: Status: Active Protocol: Document 01/15/21 14:21 LRN (Rec: 01/15/21 17:45 LRN [id number]) Posture Evaluation Position Standing Head/C-Spine Posture Forward Head T-Spine Posture Increased Kyphosis L-Spine Posture Flattened Shoulder Posture (L) Elevated Arm Posture (L) Neutral,(R) Neutral Pelvis Posture Anteriorly Tilted Weight Distribution Balanced Comments Posture Comments R breast is low, PT-OP-K Range of Motion Start: 01/12/21 17:25 Freq: Status: Active Protocol: Document 01/15/21 14:21 LRN (Rec: 01/15/21 17:45 LRN [id number]) Lumbar Spine Range of Motion Lumbar Spine Active Degrees Testing Position Standing Flexion 85 Extension 15 Rotation Left 20 Rotation Right 20 Lateral Flexion Left 10 Lateral Flexion Right 15 Comments 75 hip flex 10 hip ext Hip Goniometric Range of Motion Hip Right Passive Testing Position Supine Internal Rotation 25 External Rotation 80 Comments Decreased Ilipsoas length Left Passive Testing Position Supine Internal Rotation 30 External Rotation 75 PT-OP-M Strength Start: 01/12/21 17:25 Freq: Status: Active Protocol: Document 01/15/21 14:21 LRN (Rec: 01/15/21 17:45 LRN [id number]) Trunk Strength Trunk Manual Muscle Testing Testing Position Supine Core Stabilization Good stability during MMT of LE's. Hip Strength Hip Manual Muscle Testing Right Flexion (L2) 5 Normal Extension (S1) 5 Normal Abduction 4 Good Adduction 5 Normal External Rotation 4 Good Internal Rotation 4 Good Left Flexion (L2) 5 Normal Extension (S1) 5 Normal Abduction 5 Normal Adduction 3 Fair External Rotation 3 Fair Internal Rotation 4 Good PT-OP-Q Treatments Start: 01/12/21 17:25 Freq: Status: Active Protocol: Document 02/12/21 11:23 LRN (Rec: 02/12/21 12:23 LRN [id number]) Therapeutic Exercises Supine Exercises Regular breathing Supine Exercise Name Regular breathing for exercise Reps/Minutes 10' Comments Much v cuing and some phy cuing for rib mvmt with breathing Neuro Re-Education Treatment Other Activities Standing postural training Details Postural training w/mirror on level and slight incline Reps/Duration 15' Self-Care/Home Management Treatment Education Other Education Discussion patient directed for PT plan of care. Discussion of pessary use with PT. Discussion of breathing mechanics and proper breathing with ex. Activities Self-Care/Home Management Activities I/S pt in pt area of focus to minimize bladder prolapse: proper breathing & breathing with exercise to minimze bladder prolapse. I/S pt in posture retraining at home using visual and standing on incline for biofeedback of improved standing posture. PT-OP-T Assessment and Plan Start: 01/12/21 17:25 Freq: Status: Active Protocol: Document 02/12/21 11:23 LRN (Rec: 02/12/21 12:23 LRN [id number]) Physical Therapy Assessment Goals Four Impairment Increased voiding frequency Short Term Goal (STG) Pt will be educated in inflammatory foods, foods to avoid, and recommended fluid guidelines. STG Duration 02/05/21 Bill Recapitulation Clerk Goal (LTG) Decreased urinary frequency to every 2-3 hours or 7-8 times per day. LTG Duration 04/15/21 Three Impairment Decreased PF strength with grade 3 cystocele Short Term Goal (STG) Pt will be educated in proper breathing techniques for exercise and participating in appropriate exercises to decrease strain on PF. (01/20/21: Pt educated in proper breathing technique for exercise, needs practical review) STG Duration 02/16/21 (01/20/21: Progressed ) Bill Recapitulation Clerk Goal (LTG) Reduce cystocele effects with exercise as noted by bladder hanging down. LTG Duration 04/15/21 (01/29/21: Progressing) Two Impairment Urge incontinence and increased frequency Short Term Goal (STG) Pt educated in proper PF care and urge delay technique. STG Duration 01/29/21 Long-Term Goal (LTG) Pt will have decreased urge incontinence and decreased pressure in pelvic region. LTG Duration 04/15/21 One Impairment Lacks appropriate self care HEP Short Term Goal (STG) Pt will be educated in proper breathing techniques with body mechanics and transfers. STG Duration 02/23/21 Bill Recapitulation Clerk Goal (LTG) Pt will be independent in self care HEP of PF, hip and low back exercises. LTG Duration 04/15/21 Progress Towards Goals Progress Comments Posture training Breathing training Assessment Summary Assessment Pt had many questions regarding pessary use and roll of PT if s/p pessary placement. Pt has difficulty with breathing of rib expansion for exercise. She has fears of loss of core strength with breathing during exercise. Pt needs correction of breathing type and to not breath hold during ex and to correct posture ( posterior pelvic tilt with sway back in standing). Physical Therapy Plan Frequency and Duration Frequency of Treatment 1x/Week Plan of Care Start Date 01/15/21 Plan of Care End Date 04/15/21 Next Visit Focus/Plan Next Note Type Treatment Note Next Visit Plan Educate (Goal #4 & #3) pt in Urinary delay technique & of inflammatory foods, foods to avoid, and recommended fluid guidelines. 1-2 session training in proper breathing techniques with transfers ( Goal #1), proper body mechanics, and with her current exercise program. Add PF Roll in/out strengthening. Add to HEP: LE flexibility (hip IR) & strengthening (AD/ ER/IR left; AB/ER/IR right).
--- NOTE | 2021-02-19 17:05 | PT.OTN ---
Current Diagnoses Low back pain (02/19/21) Muscle weakness (generalized) (02/19/21) Female genital prolapse, unspecified (02/19/21) Frequency of micturition (02/19/21) Physical Therapy Treatment Note PT-OP-A Visit Information Start: 01/12/21 17:25 Freq: Status: Active Protocol: Document 02/19/21 11:19 LRN (Rec: 02/19/21 12:07 LRN [id number]) Out-Patient Physical Therapy Visit Information Visit Information Visit Type Treatment Note Visit Start Time 11:19 Visit Stop Time 12:07 Total Visit Minutes 48 Visit Number 5 Evaluation Information Evaluation Date 01/15/21 Precautions Precautions Slight amount of vertigo, 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 PT-OP-B Current Condition Start: 01/12/21 17:25 Freq: Status: Active Protocol: Document 01/15/21 14:21 LRN (Rec: 01/15/21 17:45 LRN [id number]) Current Condition History of Current Condition Onset Date 2 months ago Current Complaints Pressure & urgency to urinate. History of Current Condition Has had problem for a long time, but became pronounced 2 months ago and pt thought she had vaginal infection, but found UA negative. Has pressure and urgency, but no pain with urination, ruled out UTI. i month ago saw Dr. James told to go PT to get ex 's that might work. Dr. Day said bladder has dropped. Has done ex's from a long time ago. Was doing PF ex's that was given to her at a PF class and did them on/off but is now doing them again. Looking in mirror at night can see directly bladder. In morning vagina is closed and can't see the bladder. Has had 3 vaginal childbirths without complications. Future Testing and Treatments Planned Pessary. Treatment Goals Patient/Caregiver Goals Pt goal is to reduce the cystocele with exercise Reduce urge and frequency. Pt states unrelated to this condition she wants to strength & do old PT ([facility]) exercises 3x/week. 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 Emeterio chi 5-6x/week Personal Factors Other Personal Factors That May Effect Osteopenia, Chronic Back pain, Therapy/Recovery arthritis, bruises easily. PT-OP-C Subjective Start: 01/12/21 17:25 Freq: Status: Active Protocol: Document 02/19/21 11:19 LRN (Rec: 02/19/21 12:07 LRN [id number]) OP-PT Subjective Patient Comments Patient Comments Saw Dr. Day and is on estrogen creme. States she didn't see any difference and will try a pessary. Pt requests holding PT until after pessary placed for review of ex's and continuation to see if strengthening of PF would be helpful after pessary placement. PT-OP-I Pelvic Floor Start: 01/12/21 17:25 Freq: Status: Active Protocol: Document 01/20/21 09:07 LRN (Rec: 01/20/21 09:51 LRN [id number]) Pelvic Floor Assessment Prolapse Cystocele Grade 3 Prolapse Comments In standing bladder is protuding out of vaginal canal . PT-OP-J Posture/Palpation/Skin Start: 01/12/21 17:25 Freq: Status: Active Protocol: Document 01/15/21 14:21 LRN (Rec: 01/15/21 17:45 LRN [id number]) Posture Evaluation Position Standing Head/C-Spine Posture Forward Head T-Spine Posture Increased Kyphosis L-Spine Posture Flattened Shoulder Posture (L) Elevated Arm Posture (L) Neutral,(R) Neutral Pelvis Posture Anteriorly Tilted Weight Distribution Balanced Comments Posture Comments R breast is low, PT-OP-K Range of Motion Start: 01/12/21 17:25 Freq: Status: Active Protocol: Document 01/15/21 14:21 LRN (Rec: 01/15/21 17:45 LRN [id number]) Lumbar Spine Range of Motion Lumbar Spine Active Degrees Testing Position Standing Flexion 85 Extension 15 Rotation Left 20 Rotation Right 20 Lateral Flexion Left 10 Lateral Flexion Right 15 Comments 75 hip flex 10 hip ext Hip Goniometric Range of Motion Hip Right Passive Testing Position Supine Internal Rotation 25 External Rotation 80 Comments Decreased Ilipsoas length Left Passive Testing Position Supine Internal Rotation 30 External Rotation 75 PT-OP-M Strength Start: 01/12/21 17:25 Freq: Status: Active Protocol: Document 01/15/21 14:21 LRN (Rec: 01/15/21 17:45 LRN [id number]) Trunk Strength Trunk Manual Muscle Testing Testing Position Supine Core Stabilization Good stability during MMT of LE's. Hip Strength Hip Manual Muscle Testing Right Flexion (L2) 5 Normal Extension (S1) 5 Normal Abduction 4 Good Adduction 5 Normal External Rotation 4 Good Internal Rotation 4 Good Left Flexion (L2) 5 Normal Extension (S1) 5 Normal Abduction 5 Normal Adduction 3 Fair External Rotation 3 Fair Internal Rotation 4 Good PT-OP-Q Treatments Start: 01/12/21 17:25 Freq: Status: Active Protocol: Document 02/19/21 11:19 LRN (Rec: 02/19/21 12:07 LRN [id number]) Therapeutic Exercises Sitting Exercises LE roll in/out w/PF/Breathing Sitting Exercise Name LE roll in/out handout reviewed for PF strengthening and cuing for breathin Reps/Minutes 2' Standing Exercises Heel Raises w/PF contraction Standing Exercise Name Heel raises w/PF contraction and cuing for breathing Reps/Minutes 2' Plie w/PF contraction Standing Exercise Name Plie w/PF contraction Reps/Minutes 3' Therapeutic Activity Therapeutic Activity Transfer training w/breathing Name Proper breathing technique with Sit <> Stand, squat/ bending Reps/Minutes 8' Self-Care/Home Management Treatment Education Patient Education Home Exercise Program Other Education Discussed at length areas of PT care following placement of pessary. Discussed at length abdominal canister and deep breathing mechanics as it relates to ex, PF, and other possible physical conditions (ie-hernia 's, disc protrusions). Re-educated pt in mechanics of the core canister as it relates to PF/pressure changes . Educated pt in PF contractions with daily and routine activities and exercise. Reviewed briefly pt's HEP of: supine LE roll in/out. Issued & discussed handouts: Bladder retrainig & bladder irritant food/drinks. Educated pt in use of urinary delay technique to avoid urinary leakage with strong urge. Discussed and educated pt in postural awareness and methods to improve posture in sitting (back support or sitting on edge of surface) and in standing (general awareness or reverse incline). Educated pt in proper breathing techniques with body mechanics and transfers. Activities Self-Care/Home Management Activities Issued & reviewed HEP: Sitting PF ex (roll in/out) and standing PF ex's (Plie & ball squeeze). Reviewed supine LE roll in/out on wedge . PT-OP-T Assessment and Plan Start: 01/12/21 17:25 Freq: Status: Active Protocol: Document 02/19/21 11:19 LRN (Rec: 02/19/21 12:07 LRN [id number]) Physical Therapy Assessment Goals Four Impairment Increased voiding frequency Short Term Goal (STG) Pt will be educated in inflammatory foods, foods to avoid, and recommended fluid guidelines. STG Duration 02/05/21 (02/19/21: MET GOAL) Historian Research Assistant Goal (LTG) Decreased urinary frequency to every 2-3 hours or 7-8 times per day. LTG Duration 04/15/21 Three Impairment Decreased PF strength with grade 3 cystocele Short Term Goal (STG) Pt will be educated in proper breathing techniques for exercise and participating in appropriate exercises to decrease strain on PF. (02/19/21: Practical review of proper breathing with transfers and as instructed with exercise based on movement exertion and post exertion) STG Duration 02/16/21 (02/19/21: MET GOAL) Care Home Goal (LTG) Reduce cystocele effects with exercise as noted by bladder hanging down. LTG Duration 04/15/21 (01/29/21: Progressing) Two Impairment Urge incontinence and increased frequency Short Term Goal (STG) Pt educated in proper PF care and urge delay technique. STG Duration 01/29/21 (02/19/21: MET GOAL ) Care Home Goal (LTG) Pt will have decreased urge incontinence and decreased pressure in pelvic region. LTG Duration 04/15/21 One Impairment Lacks appropriate self care HEP Short Term Goal (STG) Pt will be educated in proper breathing techniques with body mechanics and transfers. STG Duration 02/23/21 (02/19/21: MET GOAL ) Historian Research Assistant Goal (LTG) Pt will be independent in self care HEP of PF, hip and low back exercises. (02/19/21: HEP issued of PF ex 's) LTG Duration 04/15/21 (02/19/21: Progressed) Progress Towards Goals Progress Comments STG #4 MET. Pt educated in inflammatory foods, foods to avoid, and recommended fluid guidelines. STG #3 MET. Pt educated in proper breathing techniques for exercise and participating in appropriate exercises to decrease strain on PF STG #1 MET. Pt educated in proper body mechanics, and with her current exercise program, she has been previously educated with transfers. Reviewed PF Roll in/out PF strengthening. Assessment Summary Assessment To start, pt needed much review of proper breathing with transfers and daily activities to minimize stress on PF, as well as proper posturing to promote anterior pelvic tilt and facilitate anterior PF strengthening. The pt would benefit from improved awareness of her posture with corrections and proper breathing with daily activities to minimize stress on the PF. Pt concerned over pessary placement and possible benefits of continue PF strengthening with pessary in place. Pt might benefit from 1-2 more visits to help make pt more aware of her max ex tolerance. Physical Therapy Plan Frequency and Duration Frequency of Treatment 1x/Week Plan of Care Start Date 01/15/21 Plan of Care End Date 04/15/21 Next Visit Focus/Plan Next Note Type Treatment Note Next Visit Plan 1-2 visits post pessary placement for 1) Review of self care program with pessary in to modify ex's as needed for comfort, 2) Addition of ex 's to improve bladder positioning to decrease frequency of voiding. Add to HEP: LE flexibility (hip IR) & strengthening (AD/ER/IR left; AB/ER/IR right).
--- NOTE | 2021-03-25 16:13 | PT.OTN ---
Current Diagnoses Low back pain (03/25/21) Muscle weakness (generalized) (03/25/21) Female genital prolapse, unspecified (03/25/21) Frequency of micturition (03/25/21) Physical Therapy Treatment Note PT-OP-A Visit Information Start: 01/12/21 17:25 Freq: Status: Active Protocol: Document 03/25/21 13:43 LRN (Rec: 03/25/21 14:39 LRN [id number]) Out-Patient Physical Therapy Visit Information Visit Information Visit Type Treatment Note Visit Start Time 13:43 Visit Stop Time 14:39 Total Visit Minutes 46 Visit Number 6 Evaluation Information Evaluation Date 01/15/21 Precautions Precautions Slight amount of vertigo, 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 PT-OP-B Current Condition Start: 01/12/21 17:25 Freq: Status: Active Protocol: Document 01/15/21 14:21 LRN (Rec: 01/15/21 17:45 LRN [id number]) Current Condition History of Current Condition Onset Date 2 months ago Current Complaints Pressure & urgency to urinate. History of Current Condition Has had problem for a long time, but became pronounced 2 months ago and pt thought she had vaginal infection, but found UA negative. Has pressure and urgency, but no pain with urination, ruled out UTI. i month ago saw Dr. James told to go PT to get ex 's that might work. Dr. Day said bladder has dropped. Has done ex's from a long time ago. Was doing PF ex's that was given to her at a PF class and did them on/off but is now doing them again. Looking in mirror at night can see directly bladder. In morning vagina is closed and can't see the bladder. Has had 3 vaginal childbirths without complications. Future Testing and Treatments Planned Pessary. Treatment Goals Patient/Caregiver Goals Pt goal is to reduce the cystocele with exercise Reduce urge and frequency. Pt states unrelated to this condition she wants to strength & do old PT ([facility]) exercises 3x/week. 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 Emeterio chi 5-6x/week Personal Factors Other Personal Factors That May Effect Osteopenia, Chronic Back pain, Therapy/Recovery arthritis, bruises easily. PT-OP-C Subjective Start: 01/12/21 17:25 Freq: Status: Active Protocol: Document 03/25/21 13:43 LRN (Rec: 03/25/21 14:39 LRN [id number]) OP-PT Subjective Patient Comments Patient Comments Got pessary in and seems okay . Bladder is not coming as much out. She is using cream for vagina and pH. Doesn't hurt. Urgency is better and not going to the bathroom as much. Patient Questionnaires Pelvic Pain and Urgency/Frequency Patient Symptom Scale Pelvic Pain Score 10 PT-OP-I Pelvic Floor Start: 01/12/21 17:25 Freq: Status: Active Protocol: Document 01/20/21 09:07 LRN (Rec: 01/20/21 09:51 LRN [id number]) Pelvic Floor Assessment Prolapse Cystocele Grade 3 Prolapse Comments In standing bladder is protuding out of vaginal canal . PT-OP-J Posture/Palpation/Skin Start: 01/12/21 17:25 Freq: Status: Active Protocol: Document 01/15/21 14:21 LRN (Rec: 01/15/21 17:45 LRN [id number]) Posture Evaluation Position Standing Head/C-Spine Posture Forward Head T-Spine Posture Increased Kyphosis L-Spine Posture Flattened Shoulder Posture (L) Elevated Arm Posture (L) Neutral,(R) Neutral Pelvis Posture Anteriorly Tilted Weight Distribution Balanced Comments Posture Comments R breast is low, PT-OP-K Range of Motion Start: 01/12/21 17:25 Freq: Status: Active Protocol: Document 01/15/21 14:21 LRN (Rec: 01/15/21 17:45 LRN [id number]) Lumbar Spine Range of Motion Lumbar Spine Active Degrees Testing Position Standing Flexion 85 Extension 15 Rotation Left 20 Rotation Right 20 Lateral Flexion Left 10 Lateral Flexion Right 15 Comments 75 hip flex 10 hip ext Hip Goniometric Range of Motion Hip Right Passive Testing Position Supine Internal Rotation 25 External Rotation 80 Comments Decreased Ilipsoas length Left Passive Testing Position Supine Internal Rotation 30 External Rotation 75 PT-OP-M Strength Start: 01/12/21 17:25 Freq: Status: Active Protocol: Document 01/15/21 14:21 LRN (Rec: 01/15/21 17:45 LRN [id number]) Trunk Strength Trunk Manual Muscle Testing Testing Position Supine Core Stabilization Good stability during MMT of LE's. Hip Strength Hip Manual Muscle Testing Right Flexion (L2) 5 Normal Extension (S1) 5 Normal Abduction 4 Good Adduction 5 Normal External Rotation 4 Good Internal Rotation 4 Good Left Flexion (L2) 5 Normal Extension (S1) 5 Normal Abduction 5 Normal Adduction 3 Fair External Rotation 3 Fair Internal Rotation 4 Good PT-OP-Q Treatments Start: 01/12/21 17:25 Freq: Status: Active Protocol: Document 03/25/21 13:43 LRN (Rec: 03/25/21 14:39 LRN [id number]) Therapeutic Exercises Supine Exercises Piriformis stretch Supine Exercise Name Piriformis stretch Side bilateral Reps/Minutes 30 hold x 2 PF on wedge Supine Exercise Name PF contraction on wedge w/Hip ER, IR & bridge Reps/Minutes 8' Sidelying Exercises Hip AD Sidelying Exercise Name Hip AD strengthening Side left Reps/Minutes 2' Hip AB Sidelying Exercise Name Hip AB strengthening Side right Reps/Minutes 2' Sitting Exercises Hip IR Sitting Exercise Name Strengthening Hip IR Side bilateral Equipment Used Lev 1 TB Reps/Minutes 3' Hip ER Sitting Exercise Name Strengthening Hip ER Side bilateral Equipment Used Lev 1 TB Reps/Minutes 4' Standing Exercises Forward bent PF contractions Standing Exercise Name In Hamstring stretch position: LE's neutral, IR, ER, Scissored-viji, Side bilateral Reps/Minutes 17' Self-Care/Home Management Treatment Education Patient Education Home Exercise Program Activities Self-Care/Home Management Activities Issued & reviewed HEP: PF strengthening of Quick Flicks and Long holds in standing with hips above knees and supine with hips elevated; Hip stretch: Piriformis; Hip strengthening: IR, ER, R hip AB, & L Hip AD. Issued Lev 1 TBand for sitting hip strengthening ex. PT-OP-T Assessment and Plan Start: 01/12/21 17:25 Freq: Status: Active Protocol: Document 03/25/21 13:43 LRN (Rec: 03/25/21 14:39 LRN [id number]) Physical Therapy Assessment Goals Four Impairment Increased voiding frequency Short Term Goal (STG) Pt will be educated in inflammatory foods, foods to avoid, and recommended fluid guidelines. STG Duration 02/05/21 (02/19/21: MET GOAL) Fpc Goal (LTG) Decreased urinary frequency to every 2-3 hours or 7-8 times per day. LTG Duration 04/15/21 (03/25/21: Pt not tracking) Three Impairment Decreased PF strength with grade 3 cystocele Short Term Goal (STG) Pt will be educated in proper breathing techniques for exercise and participating in appropriate exercises to decrease strain on PF. (02/19/21: Practical review of proper breathing with transfers and as instructed with exercise based on movement exertion and post exertion) STG Duration 02/16/21 (02/19/21: MET GOAL) Body Coverer Goal (LTG) Reduce cystocele effects with exercise as noted by bladder hanging down. LTG Duration 04/15/21 (03/25/21: Improved, pt notes sensation of bladder over pessary) Two Impairment Urge incontinence and increased frequency Short Term Goal (STG) Pt educated in proper PF care and urge delay technique. STG Duration 01/29/21 (02/19/21: MET GOAL ) Body Coverer Goal (LTG) Pt will have decreased urge incontinence and decreased pressure in pelvic region. (03/25/21: Pt reports symptoms less of urgency and pelvic pressure, but notes she still feels bladder dropped and pessary drops as day progresses. Pt had no complaints of pain). LTG Duration 04/15/21 (03/25/21: MET GOAL, with slight improvement noted ) One Impairment Lacks appropriate self care HEP Short Term Goal (STG) Pt will be educated in proper breathing techniques with body mechanics and transfers. STG Duration 02/23/21 (02/19/21: MET GOAL ) Fpc Goal (LTG) Pt will be independent in self care HEP of PF, hip and low back exercises. LTG Duration 04/15/21 (03/25/21: MET GOAL) Assessment Summary Assessment Pt has been placed on a self care HEP after being fit for pessary and participating in her daily exercises. She had no complaints of discomfort with use of pessary and had no complaints of pain with ex's issued today. The pt has had some improvement in her symptoms of urgency and voiding frequency, but still notes a drop of her bladder over the pessary. The feels no further need for therapy and will continue with her HEP of PF, LB & hip exercises. Pt symptoms reported improved verbally, but noted worse via PUF score of 10 (was 7). Physical Therapy Plan Discharge Physical Therapy Discharge Comments Pt feels ready for discharge from therapy to her home program. She achieved most of her goals, but did not get the complete resolution of her prolapse, urgency and frequency of voiding. Thank you for your referral.
== END 2021-03-29 12:36 | disposition home or self-care (01) ==
LOC: PHYS 13:30
PROVIDERS: Family Provider Physician Assistant; PCP Physician Assistant; Referring Provider Obstetrics & Gynecology; Visit Provider Obstetrics & Gynecology
DX: N81.9 Female genital prolapse, unspecified (principal); R35.0 Frequency of micturition; M62.81 Muscle weakness (generalized); M54.5 Low back pain
CPT/HCPCS: 97110; 97112; 97162; 97530; 97535

== ENCOUNTER → 2021-05-13 17:31 | Outpatient (CLI) | payer MEDICARE, OTHER, SELFPAY ==
--- NOTE | 2021-05-13 | DI.MG.S_ITS ---
BILATERAL DIGITAL SCREENING MAMMOGRAM 3D/2D WITH CAD: 05/13/2021 Comparison is made to exams dated: 03/25/2020 mammogram, 12/03/2018 mammogram, 11/09/2018 mammogram, and 10/13/2017 mammogram - [facility]. There are scattered fibroglandular elements in both breasts. Current study was also evaluated with a Computer Aided Detection (CAD) system. There are benign calcifications in both breasts. There also are biopsy clips in the right breast. No significant masses, calcifications, or other findings are seen in either breast. There has been no significant interval change. IMPRESSION: BENIGN There is no mammographic evidence of malignancy. A 1 year screening mammogram is recommended. This exam was interpreted at Station ID: [id number]. NOTE: For mammograms, a report in lay terms will be sent to the patient. Approximately 15% of breast malignancies will not be visualized mammographically. In the management of a palpable breast mass, a negative mammogram must not discourage biopsy of a clinically suspicious lesion. Electronically Signed By: Isra loo/jas:05/14/2021 09:09:44 letter sent: Normal Exam ACR BI-RADS Category 2: Benign Finding(s) 3342F
== END ==
PROVIDERS: Family Provider Physician Assistant; PCP Physician Assistant; Referring Provider Physician Assistant; Visit Provider Physician Assistant
DX: Z12.31 Encounter for screening mammogram for malignant neoplasm of breast (principal)
CPT/HCPCS: 77063; 77067

== ENCOUNTER → 2021-06-14 11:13 | Outpatient (CLI) | payer MEDICARE, OTHER, SELFPAY ==
[2021-06-14 15:39] LABS: COVID19 -Nasal RAPID Negative (Negative)
== END ==
PROVIDERS: Family Provider Physician Assistant; PCP Physician Assistant; Visit Provider Nurse Practitioner Family
DX: Z20.822 Contact with and (suspected) exposure to COVID-19 (principal); Z01.812 Encounter for preprocedural laboratory examination
CPT/HCPCS: 87635; C9803

== ENCOUNTER 2021-06-15 06:22 | Day surgery (SDC) | payer MEDICARE, OTHER, SELFPAY ==
[2021-06-15 07:10] VITALS: BP 106/69; PULSE 55; RESP 16; TEMP 36.4; O2SAT 100; BMI 21.3
[2021-06-15] MEDS: CATARACT EYE COMPOUND (10 DROPS/SYRINGE) 3 DROPS EYE-OP (07:20)
[2021-06-15] MEDS: PROPARACAINE 0.5% OPHTH SOL 2 DROPS EYE-OP (07:20)
--- NOTE | 2021-06-15 07:30 | PM.PREOP ---
Pre-operative Note Interval Note History & Physical reviewed/Exam performed by Physician: Yes Changes to H&P: No
--- NOTE | 2021-06-15 07:30 | PM.OP.1 ---
Operative Date/Time/Diagnoses Pre-op diagnosis: Nuclear cataract right eye Procedure & Clinicians Procedure: Cataract Surgery Same procedure as scheduled: Yes Surgeon: Guzman Miller Anesthesia Type: MAC +/- and Sedation Operative Notes Procedure in detail: Patient brought to the operating suite. Tetracaine drops placed in the right eye. Marking instrument was used to rashaun the vertical and horizontal meridians. Patient was prepped and draped in sterile manner. Wire lid speculum was placed in the eye. Betadine drops were placed on the eye. This was irrigated. Lidocaine jelly was placed on the eye. A paracentesis port was created with a side-port blade. 0.1 mL 1% preservative free lidocaine was injected into the anterior chamber. The anterior chamber was deepened with viscoelastic. 2.6 mm keratome was used to create a temporal clear corneal incision. Cystotome and Utrata forceps were used to create continuous tear capsulorrhexis. Balanced salt solution was used to hydro dissect the nucleus. The phacoemulsification handpiece was inserted and the nucleus was removed using the stop and chop technique. The irrigation aspiration handpiece was inserted and the remaining cortex was removed. Anterior chamber was deepened with viscoelastic. An Cleary [id number] intraocular lens with a power of 12.5 was injected into the capsular bag. Irrigation aspiration handpiece was inserted and the remaining viscoelastic was removed. The lens was rotated to the 90 degree meridian. Incision was hydrated with balanced salt solution and found to be leak free with pressure with Weck-Salma sponges. 0.1 mL Vigamox injected anterior chamber. 0.3 mL Kenalog 10 mg was injected subconjunctivally. Lid speculum was removed. The patient left the operating room in excellent condition. Complications: none Post-operative Condition: stable Disposition: same day surgery
[2021-06-15] MEDS: HYALURONATE SODIUM 30 MG-10 MG/ML SYRINGES 1 BOX INTRAOCULA (07:55)
[2021-06-15] MEDS: MOXIFLOXACIN INJ 4 MG/0.8 ML VIAL 0.5 MG EYE-OP (07:55)
[2021-06-15] MEDS: TETRACAINE 0.5% OPHTH DROPS 4 ML 2 DROPS EYE-OP (07:56)
[2021-06-15] MEDS: LIDOCAINE 2% (GLYDO) 6 ML GEL TOP (07:56)
[2021-06-15] MEDS: BALANCED SALT IRRIG SOLN NO.2 500 ML, EPINEPHrine 1 MG IRR (07:56)
[2021-06-15] MEDS: PHENYLEPHRINE/LIDOCAINE VIAL (OR) 0.2 ML EYE-OP (07:56)
[2021-06-15] MEDS: TRIAMCINOLONE 50 MG/5 ML VIAL INJ (07:56)
[2021-06-15 08:05] VITALS: BP 95/66; PULSE 52; RESP 12; TEMP 36.4; O2SAT 99
== END 2021-06-15 08:30 | disposition home or self-care (01) ==
PROVIDERS: Family Provider Physician Assistant; PCP Physician Assistant; Referring Provider Ophthalmology; Visit Provider Ophthalmology
PROC: (CPT 66984; principal; 2021-06-15 07:45)
DX: H25.11 Age-related nuclear cataract, right eye (principal)
CPT/HCPCS: 66984; J0171; J2250; J3010; J3301; V2787

== ENCOUNTER → 2021-06-28 08:39 | Outpatient (CLI) | payer MEDICARE, OTHER, SELFPAY ==
[2021-06-28 15:51] LABS: COVID19 -Nasal RAPID Negative (Negative)
== END ==
PROVIDERS: Family Provider Physician Assistant; PCP Physician Assistant; Visit Provider Nurse Practitioner Family
DX: Z20.822 Contact with and (suspected) exposure to COVID-19 (principal); Z01.812 Encounter for preprocedural laboratory examination
CPT/HCPCS: 87635

== ENCOUNTER 2021-06-29 07:41 | Day surgery (SDC) | payer MEDICARE, OTHER, SELFPAY ==
[2021-06-29] MEDS: PROPARACAINE 0.5% OPHTH SOL 2 DROPS EYE-OP (08:47)
[2021-06-29] MEDS: CATARACT EYE COMPOUND (10 DROPS/SYRINGE) 3 DROPS EYE-OP (08:53)
[2021-06-29 08:54] VITALS: BP 97/62; PULSE 53; RESP 18; TEMP 36.1; O2SAT 100; BMI 21.7
--- NOTE | 2021-06-29 09:32 | P.OP_ITS ---
Operative Date/Time/Diagnoses Pre-op diagnosis: Nuclear Cataract Left eye Post-op diagnosis: same Procedure & Clinicians Same procedure as scheduled: Yes Surgeon: Guzman Miller Anesthesia Type: MAC +/- and Sedation Operative Notes Procedure in detail: Patient brought to the operating suite. Tetracaine drops placed in the left eye. Marking instrument was used to rashaun the vertical and horizontal meridians. Patient was prepped and draped in sterile manner. Wire lid speculum was placed in the eye. Marking instrument was used to rashaun the 70 degree meridian. Betadine drops were placed on the eye. This was irrigated. Lidocaine jelly was placed on the eye. A paracentesis port was created with a side-port blade. 0.1 mL 1% preservative free lidocaine was injected into the anterior chamber. The anterior chamber was deepened with viscoelastic. 2.6 mm keratome was used to create a temporal clear corneal incision. Cystotome and Utrata forceps were used to create continuous tear capsulorrhexis. Balanced salt solution was used to hydro dissect the nucleus. The phacoemulsification handpiece was inserted and the nucleus was removed using the stop and chop technique. The irrigation aspiration handpiece was inserted and the remaining cortex was removed. Anterior chamber was deepened with viscoelastic. An Cleary [id number] intraocular lens with a power of 12.0 was injected into the capsular bag. Irrigation aspiration handpiece was inserted and the remaining viscoelastic was removed. The lens was rotated to the 70 degree meridain. Incision was hydrated with balanced salt solution and found to be leak free with pressure with Weck- Salma sponges. 0.1 mL Vigamox injected anterior chamber. 0.3 mL Kenalog 10 mg was injected subconjunctivally. Lid speculum was removed. The patient left the operating room in excellent condition. Complications: none Post-operative Condition: stable Disposition: same day surgery
--- NOTE | 2021-06-29 09:32 | PM.PREOP ---
Pre-operative Note Interval Note History & Physical reviewed/Exam performed by Physician: Yes Changes to H&P: No
[2021-06-29] MEDS: TETRACAINE 0.5% OPHTH DROPS 4 ML 2 DROPS EYE-OP (09:47)
[2021-06-29] MEDS: HYALURONATE SODIUM 30 MG-10 MG/ML SYRINGES 1 BOX INTRAOCULA (09:47)
[2021-06-29] MEDS: PHENYLEPHRINE/LIDOCAINE VIAL (OR) 0.2 ML EYE-OP (09:47)
[2021-06-29] MEDS: LIDOCAINE 2% (GLYDO) 6 ML GEL TOP (09:47)
[2021-06-29] MEDS: MOXIFLOXACIN INJ 4 MG/0.8 ML VIAL 0.5 MG EYE-OP (09:47)
[2021-06-29] MEDS: TRIAMCINOLONE 50 MG/5 ML VIAL INJ (09:47)
[2021-06-29] MEDS: BALANCED SALT IRRIG SOLN NO.2 500 ML, EPINEPHrine 1 MG IRR (09:48)
[2021-06-29 10:11] VITALS: BP 101/65; PULSE 50; RESP 16; TEMP 36.4; O2SAT 97
--- NOTE | 2021-06-29 10:12 | SUR.PHASEII ---
Patient drinking juice without difficulty. VSS. Denies pain or nausea.
== END 2021-06-29 10:29 | disposition home or self-care (01) ==
LOC: OR 07:45
PROVIDERS: Family Provider Physician Assistant; PCP Physician Assistant; Referring Provider Ophthalmology; Visit Provider Ophthalmology
PROC: (CPT 66984; principal; 2021-06-29 09:45)
DX: H25.12 Age-related nuclear cataract, left eye (principal)
CPT/HCPCS: 66984; J0171; J2250; J3301; V2787

== ENCOUNTER → 2022-01-19 14:59 | Outpatient (CLI) | payer MEDICARE, OTHER, SELFPAY ==
--- NOTE | 2022-01-19 15:01 | DI.RAD.S_ITS ---
PROCEDURE: XR TOE LT MIN 2V INDICATIONS: great toe pain, r/o trauma TECHNIQUE: 3 views of the 1st toe(s) acquired. COMPARISON: None. FINDINGS: Bones: No fractures or dislocations. No suspicious bony lesions. Soft tissues: No suspicious soft tissue densities. IMPRESSION: No visualized acute fracture or dislocation. However, if clinical concern and/or pain persist, short interval imaging followup in 7-10 days is recommended, as occult injury cannot be definitively excluded. Dictated by: Clarissa Armstrong M.D. on 01/19/2022 at 16:03 Approved by: Clarissa Armstrong M.D. on 01/19/2022 at 16:03
== END ==
PROVIDERS: Family Provider Physician Assistant; PCP Family Medicine; Referring Provider Physician Assistant; Visit Provider Physician Assistant
DX: M79.675 Pain in left toe(s) (principal)
CPT/HCPCS: 73660

== ENCOUNTER → 2022-05-16 06:53 | Outpatient (CLI) | payer MEDICARE, OTHER, SELFPAY ==
[2022-05-16 10:59] LABS: Hematocrit 40.9 % (36-46); Hemoglobin 13.9 g/dL (12.0-16.0); Mean Corpuscular HGB Conc 34.1 % (30-36); Mean Corpuscular Hemoglobin 31.8 PG (26-34); Mean Corpuscular Volume 93.3 fL (80-100); Platelet Count 322 X10^3/uL (150-400); Red Blood Cell Count 4.39 X10^6/uL (4.0-5.2); Red Cell Distribution Width 15.5 % (11.6-14.8); White Blood Cell Count 7.2 X10^3/uL (4.5-11.0)
[2022-05-16 11:16] LABS: Add Manual Diff / Slide Review YES
[2022-05-16 11:51] LABS: Neutrophils Absolute Manual 5112 /uL (3000-5900); Total Cells Counted 100
[2022-05-16 11:53] LABS: RBC Morphology Normal Morphology
[2022-05-16 12:03] LABS: BUN Creatinine Ratio 20.3 (6-22); Blood Urea Nitrogen 16 mg/dL (7-17); Carbon Dioxide 28 mmol/L (22-32); Chloride 102 mmol/L (98-107); Estimated Glomerular Filt Rate > 60 mL/min (>60); Glucose 78 mg/dL (80-110); HEMOLYSIS < 15 (0-50); Potassium 4.2 mmol/L (3.4-5.1); Sodium 139 mmol/L (137-145)
[2022-05-16 12:04] LABS: Free T3, Triiodothyronine Free 3.39 pg/mL (2.77-5.27)
== END ==
PROVIDERS: Family Provider Physician Assistant; PCP Family Medicine; Referring Provider Family Medicine; Visit Provider Family Medicine
DX: R53.83 Other fatigue (principal); L85.3 Xerosis cutis; R23.3 Spontaneous ecchymoses
CPT/HCPCS: 36415; 80048; 84439; 84443; 84481; 85007; 85025

== ENCOUNTER → 2022-05-24 14:12 | Outpatient (CLI) | payer MEDICARE, OTHER, SELFPAY | PROVIDERS: Family Provider Physician Assistant; PCP Family Medicine; Referring Provider Family Medicine; Visit Provider Family Medicine | DX: D72.820 Lymphocytosis (symptomatic) (principal) | CPT/HCPCS: 36415 ==

== ENCOUNTER → 2022-05-25 09:08 | Outpatient (CLI) | payer MEDICARE, OTHER, SELFPAY ==
[2022-05-26 13:54] LABS: Fecal Immunochemical Test Negative (Negative)
== END ==
PROVIDERS: Family Provider Physician Assistant; PCP Family Medicine; Referring Provider Family Medicine; Visit Provider Family Medicine
DX: Z12.11 Encounter for screening for malignant neoplasm of colon (principal)
CPT/HCPCS: 82274

== ENCOUNTER → 2022-06-07 13:42 | Outpatient (CLI) | payer MEDICARE, OTHER, SELFPAY | PROVIDERS: Family Provider Physician Assistant; PCP Family Medicine; Referring Provider Internal Medicine; Visit Provider Internal Medicine | DX: Z23 Encounter for immunization (principal) | CPT/HCPCS: 90471; 90662 ==

== ENCOUNTER → 2022-06-08 15:35 | Outpatient (CLI) | payer MEDICARE, OTHER, SELFPAY ==
--- NOTE | 2022-06-08 15:36 | DI.MG.S_ITS ---
BILATERAL DIGITAL SCREENING MAMMOGRAM 3D/2D WITH CAD: 06/08/2022 CLINICAL: Routine screening. Comparison is made to exams dated: 05/13/2021 mammogram, 03/25/2020 mammogram, and 12/03/2018 mammogram - [facility]. There are scattered areas of fibroglandular density in both breasts (category b / 25%-50% glandular tissue). Current study was also evaluated with a Computer Aided Detection (CAD) system. There are benign calcifications in both breasts. There also are biopsy clips in the right breast. No significant masses, calcifications, or other findings are seen in either breast. There has been no significant interval change. IMPRESSION: BENIGN There is no mammographic evidence of malignancy. A 1 year screening mammogram is recommended. Based on the Tyrer Cuzick model (a risk assessment model) the patient's lifetime risk is 8.1% and her 10 year risk is 0.0%. According to the ACR, ACS, and NCCN guidelines, an annual breast MRI exam along with mammogram is recommended if the patient's lifetime risk is 20% or greater. This exam was interpreted at Station ID: [id number]. NOTE: For mammograms, a report in lay terms will be sent to the patient. Approximately 15% of breast malignancies will not be visualized mammographically. In the management of a palpable breast mass, a negative mammogram must not discourage biopsy of a clinically suspicious lesion. Electronically Signed By: Víctor zurita/jas:06/09/2022 08:12:44 letter sent: Normal Exam ACR BI-RADS Category 2: Benign Finding(s) 3342F
== END ==
PROVIDERS: Family Provider Physician Assistant; PCP Family Medicine; Referring Provider Family Medicine; Visit Provider Family Medicine
DX: Z12.31 Encounter for screening mammogram for malignant neoplasm of breast (principal)
CPT/HCPCS: 77063; 77067

== ENCOUNTER → 2023-06-08 14:27 | Outpatient (CLI) | payer MEDICARE, OTHER, SELFPAY | PROVIDERS: Family Provider Physician Assistant; PCP Family Medicine; Referring Provider Family Medicine; Visit Provider Family Medicine | DX: Z23 Encounter for immunization (principal) | CPT/HCPCS: 90471; 90662 ==

== ENCOUNTER → 2023-07-20 13:57 | Outpatient (CLI) | payer MEDICARE, OTHER, SELFPAY ==
--- NOTE | 2023-07-20 | DI.MG.S_ITS ---
BILATERAL DIGITAL SCREENING MAMMOGRAM 3D/2D WITH CAD: 07/20/2023 CLINICAL: Routine screening. Family history of breast cancer. Comparison is made to exams dated: 06/08/2022 mammogram, 05/13/2021 mammogram, and 03/25/2020 mammogram - [facility]. There are scattered areas of fibroglandular density in both breasts (category b / 25%-50% glandular tissue). Current study was also evaluated with a Computer Aided Detection (CAD) system. There are biopsy clips in the right breast. No significant masses, calcifications, or other findings are seen in either breast. IMPRESSION: BENIGN There is no mammographic evidence of malignancy. A 1 year screening mammogram is recommended. Based on the Tyrer Cuzick model (a risk assessment model) the patient's lifetime risk is 7.5% and her 10 year risk is 0.0%. According to the ACR, ACS, and NCCN guidelines, an annual breast MRI exam along with mammogram is recommended if the patient's lifetime risk is 20% or greater. This exam was interpreted at Station ID: [id number]. NOTE: For mammograms, a report in lay terms will be sent to the patient. Approximately 15% of breast malignancies will not be visualized mammographically. In the management of a palpable breast mass, a negative mammogram must not discourage biopsy of a clinically suspicious lesion. Electronically Signed By: Palak Allen M.D., PH.D quin[place]/jas:07/20/2023 19:52:10 letter sent: Normal Exam ACR BI-RADS Category 2: Benign Finding(s) 3342F
== END ==
PROVIDERS: Family Provider Physician Assistant; PCP Family Medicine; Referring Provider Family Medicine; Visit Provider Family Medicine
DX: Z12.31 Encounter for screening mammogram for malignant neoplasm of breast (principal); Z80.3 Family history of malignant neoplasm of breast
CPT/HCPCS: 77063; 77067

== ENCOUNTER → 2023-09-29 06:52 | Outpatient (CLI) | payer MEDICARE, OTHER, SELFPAY ==
[2023-09-29 07:39] LABS: Add Manual Diff / Slide Review NO; Basophils Absolute Auto 100 /uL (0-100); Basophils Percent Auto 1.5 % (0-2); Eosinophils Absolute Auto 200 /uL (0-450); Eosinophils Percent Auto 3.4 % (2-4); Hematocrit 42.7 % (36-46); Hemoglobin 14.5 g/dL (12.0-16.0); Lymphocytes Absolute Auto 1400 /uL (1100-4500); Lymphocytes Percent Auto 21.5 % (25-40); Mean Corpuscular Hemoglobin 32.5 PG (26-34); Mean Corpuscular Volume 95.5 fL (80-100); Monocytes Absolute Auto 400 /uL (0-900); Neutrophils Absolute Auto 4500 /uL (1500-7000); Neutrophils Percent Auto 67.6 % (50-75); Platelet Count 311 X10^3/uL (150-400); Red Blood Cell Count 4.47 X10^6/uL (4.0-5.2); Red Cell Distribution Width 13.9 % (11.6-14.8); White Blood Cell Count 6.6 X10^3/uL (4.5-11.0)
[2023-09-29 08:43] LABS: Alanine Aminotransferase 19 IU/L (<35); Albumin 4.2 g/dL (3.5-5.0); Albumin Globulin Ratio 1.2 (1.0-2.8); Alkaline Phosphatase 55 U/L (38-126); Aspartate Aminotransferase 42 IU/L (14-36); BUN Creatinine Ratio 14.8 (6-22); Bilirubin Total 1.2 mg/dL (0.2-1.3); Blood Urea Nitrogen 12 mg/dL (7-17); Calcium 9.7 mg/dL (8.4-10.2); Carbon Dioxide 30 mmol/L (22-32); Chloride 103 mmol/L (98-107); Cholesterol 208 mg/dL (140-199); Estimated Glomerular Filt Rate > 60 mL/min (>60); Globulin 3.4 g/dL (1.7-4.1); Glucose 82 mg/dL (80-110); HDL Cholesterol 54 mg/dL (40-60); HEMOLYSIS < 15 (0-50); LDL Cholesterol Calculated 135 mg/dL (<100); Potassium 4.5 mmol/L (3.4-5.1); Sodium 138 mmol/L (137-145); Total Protein 7.6 g/dL (6.3-8.2); Triglycerides 95 mg/dL (35-150)
[2023-09-29 08:54] LABS: Free T4, Direct Thyroxine 1.11 ng/dL (0.78-2.19)
[2023-09-29 08:55] LABS: Free T3, Triiodothyronine Free 3.11 pg/mL (2.77-5.27)
[2023-09-29 09:07] LABS: Thyroid Stimulating Hormone 1.49 uIU/mL (0.47-4.68)
[2023-09-29 09:27] LABS: Vitamin B12 825 pg/mL (239-931)
== END ==
LOC: LAB 06:54
PROVIDERS: Family Provider Physician Assistant; PCP Family Medicine; Referring Provider Family Medicine; Visit Provider Family Medicine
DX: R53.83 Other fatigue (principal); R14.0 Abdominal distension (gaseous); R19.5 Other fecal abnormalities; Z79.899 Other long term (current) drug therapy; Z13.6 Encounter for screening for cardiovascular disorders
CPT/HCPCS: 36415; 80053; 80061; 82607; 84439; 84443; 84481; 85025

== ENCOUNTER → 2023-10-17 11:00 | Outpatient (CLI) | payer MEDICARE, OTHER, SELFPAY ==
[2023-10-19 09:36] LABS: Fecal Immunochemical Test Negative (Negative)
== END ==
PROVIDERS: Family Provider Physician Assistant; PCP Family Medicine; Referring Provider Family Medicine; Visit Provider Family Medicine
DX: Z12.11 Encounter for screening for malignant neoplasm of colon (principal)
CPT/HCPCS: 82274

== ENCOUNTER → 2023-10-26 10:05 | Outpatient (CLI) | payer MEDICARE, OTHER, SELFPAY ==
--- NOTE | 2023-10-26 10:07 | DI.US.S_ITS ---
PROCEDURE: US ABDOMEN COMPLETE INDICATIONS: BLOATING TECHNIQUE: Real-time scanning was performed of the abdominal and retroperitoneal organs, with image documentation. COMPARISON: None. FINDINGS: Liver: Liver is normal in size and homogeneous in echotexture. Gallbladder: No gallstones identified. Normal gallbladder wall thickness. No pericholecystic fluid. Negative sonographic Pringle sign. Biliary ducts: Intrahepatic bile ducts are non-dilated. Extrahepatic bile duct caliber measures 7.6 mm. Normal is 6-7 mm or less in diameter, or 10 mm or less post-cholecystectomy. Pancreas: Visualized portions of the pancreas are sonographically normal. Spleen: Spleen is normal in size and homogeneous in echotexture. Kidneys: Kidneys are normal in size and echotexture. Right kidney measures 10.1 cm long; left kidney measures 10.4 cm long. No hydronephrosis or nephrolithiasis. No solid masses. Aorta: Visualized aorta is normal in caliber at less than 3 cm. Iliacs: Proximal common iliac arteries are normal in caliber at less than 2.5 cm. IVC: Intrahepatic inferior vena cava is patent. Miscellaneous: No free abdominal fluid. IMPRESSION: Normal sonographic evaluation of the abdomen. Approved by: Palak Allen M.D. on 10/26/2023 at 11:38
--- NOTE | 2023-10-26 10:07 | DI.US.S_ITS ---
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 Additional endovaginal scanning was necessary due to incomplete visualization of the adnexal and endometrial structures by transabdominal scanning. COMPARISON: [facility], , PELVIC COMPLETE, 10/23/2013, 8:38. FINDINGS: Uterus: Uterus is anteverted and normal in size at 9.9 x 5.4 x 6.6 cm. The myometrium is heterogeneous. The endometrium measures 3.4 mm combined thickness. Multiple uterine fibroids. There is a 1.2 cm right posterior intramural fibroid with calcification. Right anterior intramural fibroid measuring 2.7 cm. Left anterior intramural fibroid measuring 2.9 cm. Additional subtle fibroids measuring up to 3 cm. Ovaries: The ovaries are not seen. Other: No pathologic free abdominal or pelvic fluid. IMPRESSION: Multiple fibroids within the uterus, as described above. The ovaries are not visualized. We strive to produce accurate, complete, and clear reports of imaging services. To assist us in improving patient care, this report was composed using standard report templates and voice recognition software. Therefore, it may contain abnormal punctuation, insertions and/or omissions. Occasional wrong-word or sound-alike substitutions may occur. Though we review the report and make efforts to correct it, we do recommend that the report be read carefully in proper context to recognize any text inaccuracies. Dictated by: Tommy Morris M.D. on 10/26/2023 at 12:35 Approved by: Tommy Morris M.D. on 10/26/2023 at 12:38
== END ==
PROVIDERS: Family Provider Physician Assistant; PCP Family Medicine; Referring Provider Family Medicine; Visit Provider Family Medicine
DX: D25.1 Intramural leiomyoma of uterus (principal); N81.9 Female genital prolapse, unspecified; R19.5 Other fecal abnormalities; R14.0 Abdominal distension (gaseous); N81.11 Cystocele, midline; Z96.0 Presence of urogenital implants
CPT/HCPCS: 76700; 76830; 76856

== ENCOUNTER 2024-06-01 13:39 | Emergency (ER) | payer MEDICARE, OTHER, SELFPAY ==
[2024-06-01 13:39] VITALS: BP 144/68; PULSE 62; RESP 18; TEMP 36.3; O2SAT 100; BMI 20.9
--- NOTE | 2024-06-01 13:52 | DI.RAD.S_ITS ---
PROCEDURE: XR SHOULDER RT MIN 2V INDICATIONS: shoulder injury TECHNIQUE: 3 views of the shoulder were acquired. COMPARISON: None. FINDINGS: Bones: There is a moderately displaced, comminuted fracture of the right humeral head and neck. No glenohumeral dislocation is seen. No fracture of the scapula or the clavicle can be seen. The visualized ribs appear intact. Underlying generalized degenerative changes are seen. Soft tissues: No suspicious soft tissue calcifications. IMPRESSION: Comminuted, moderately displaced fracture of the right humerus head and neck. Dictated by: Raymundo Candelario M.D. on 06/01/2024 at 13:29 Approved by: Raymundo Candelario M.D. on 06/01/2024 at 13:30
--- NOTE | 2024-06-01 14:26 | ED_ITS ---
HPI - Extremity Injury (Upper) General Chief Complaint: Extremity Injury, Upper Stated Complaint: slipped on right arm-r shoulder pain Time Seen by Provider: 06/01/24 14:14 Source: patient Mode of arrival: Wheelchair History of Present Illness HPI narrative: Patient is a 79-year-old healthy female who presents today with right shoulder injury. She says she was working in the garden when she slipped and fell at a funny?. She is having some numbness tingling in her right hand. She is left- hand dominant. She denies any other injury. No head injury neck pain or other symptoms. She has not on anticoagulation. Unknown when last tetanus was Related Data Home Medications Medication Instructions Recorded Confirmed ibuprofen 200 mg tablet 200 mg PO Q6H PRN Pain (Scale 12/10/20 05/01/24 Score 1-3) cholecalciferol (vitamin D3) 50 50 mcg PO DAILY 06/28/22 05/01/24 mcg (2,000 unit) capsule (Vitamin D3) turmeric 400 mg capsule 400 mg PO BID 06/28/22 05/01/24 SporeBiotic PO 09/27/23 05/01/24 vitamin B complex (B tab PO B12 needed 10/12/23 05/01/24 Complex-Vitamin B12 tablet) Previous Rx's Medication Instructions Recorded oxyquinoline 0.025 %-sodium lauryl 1 ea vaginal .weekly vaginal 03/04/21 sulfate 0.01 % vaginal gel pessary #113.4 grams epinephrine 0.3 mg/0.3 mL 0.3 mg (0.3 mL) IM Q5-15M PRN 03/14/23 injection, auto-injector hypersensitivity reaction #2 ea CMP Estriol vaginal 0.1% cream See Rx Instructions .Route 07/12/23 .COMPLEX #30 grams meclizine 25 mg tablet 25 mg PO BID PRN dizziness #30 tabs 03/20/24 ondansetron 4 mg disintegrating 4 mg PO Q8H PRN nausea and 06/01/24 tablet vomiting #10 tabs oxycodone-acetaminophen 5 mg-325 1 tab PO Q6H PRN pain #20 tabs 06/01/24 mg tablet (Percocet) Allergies Allergy/AdvReac Type Severity Reaction Status Date / Time peanut Allergy Severe itching, Verified 06/01/24 13:53 skin reddness, nausea Patient History Medical History Irritability and anger Anxiety and depression Acquired hammertoes of both feet Callus of toe Positional vertigo Change in consistency of stool Abdominal bloating Wears glasses Osteoarthritis Peanut allergy Anxiety Kyphosis Hip pain Back pain Shoulder pain Scoliosis Osteopenia Fractures (~2003) Measles Hearing loss Fibroids Bladder prolapse (~2021) Skin cancer, basal cell Postural kyphosis, thoracic region Stiff neck Segmental and somatic dysfunction of abdomen and other regions Sacral region somatic dysfunction Pelvic somatic dysfunction Lumbar region somatic dysfunction Chronic bilateral low back pain without sciatica (~1999) Dry skin Easy bruising Fatigue H/O vaginal delivery No significant medical problems Surgical History Anesthesia History of throat surgery (~1992) History of tubal ligation (~1980) History of cataract removal with insertion of prosthetic lens Family History Father History of heart disease Mother History of emphysema Grandfather History of heart disease Grandmother Cancer Social History household members: none Smoking Status: Never smoker alcohol intake: never substance use type: does not use Smoking Status: Never smoker alcohol intake frequency: holidays/special occasions only Substance Use Type: does not use Exam Initial Vital Signs Initial Vital Signs: Vital Signs Temperature 97.4 F L 06/01/24 13:39 Pulse Rate 62 06/01/24 13:39 Respiratory Rate 18 06/01/24 13:39 Blood Pressure 144/68 H 06/01/24 13:39 Pulse Oximetry 100 06/01/24 13:39 Oxygen Delivery Method Room Air 06/01/24 13:39 Course Orders Ordered: ED Orders 06/01/24 13:52 XR shoulder RT min 2V Stat 06/01/24 15:02 CT UE RT wo con Stat Discontinued Medications Hydrocodone Bitart/Acetaminophen (Hydrocodone/Acet 5/325 Tablet) 1 tab PO NOW ONE Stop: 06/01/24 15:58 Last Admin: 06/01/24 16:14 Dose: 1 tab Documented By: MLM Diphtheria/Tetanus/Acell Pertussis (Tet,Diph,Pertuss(Acell),Vac/Pf 0.5 Ml Syringe) 0.5 ml IM .ONCE ONE Stop: 06/01/24 14:24 Last Admin: 06/01/24 14:32 Dose: 0.5 ml Documented By: MLPj Hydromorphone HCl (Hydromorphone 1 Mg Inj) 1 mg SUBCUT NOW ONE Stop: 06/01/24 14:24 Last Admin: 06/01/24 14:32 Dose: 1 mg Documented By: MLM Ketorolac Tromethamine (Ketorolac 30 Mg/Ml Vial) 30 mg IM NOW ONE Stop: 06/01/24 15:58 Last Admin: 06/01/24 16:10 Dose: 30 mg Documented By: MLPj Ondansetron HCl (Ondansetron 4 Mg Odt) 4 mg SL NOW ONE Stop: 06/01/24 16:06 Last Admin: 06/01/24 16:10 Dose: 4 mg Documented By: CHANDLER Vital Signs Vital signs: Vital Signs - 8 hr 06/01/24 13:39 06/01/24 15:50 Temperature 97.4 F L Pulse Rate 62 64 Respiratory Rate 18 Blood Pressure 144/68 H 159/76 H Pulse Oximetry 100 99 Oxygen Delivery Method Room Air Room Air MDM - Extremity Injury (Upper) Imaging Data Extremity x-ray #1: Radiologist's Impression: PROCEDURE: XR SHOULDER RT MIN 2V INDICATIONS: shoulder injury TECHNIQUE: 3 views of the shoulder were acquired. COMPARISON: None. FINDINGS: Bones: There is a moderately displaced, comminuted fracture of the right humeral head and neck. No glenohumeral dislocation is seen. No fracture of the scapula or the clavicle can be seen. The visualized ribs appear intact. Underlying generalized degenerative changes are seen. Soft tissues: No suspicious soft tissue calcifications. IMPRESSION: Comminuted, moderately displaced fracture of the right humerus head and neck. Dictated by: Raymundo Candelario M.D. on 06/01/2024 at 13:29 Approved by: Raymundo Candelario M.D. on 06/01/2024 at 13:30 CT RUE: Radiologist's Impression: PROCEDURE: CT UE RT WO CON INDICATIONS: humeral head fx TECHNIQUE: Noncontrast 0.75 mm thick sections acquired from the acromioclavicular joint to the inferior scapula, with coronal and sagittal reformatting. COMPARISON: [facility], CR, XR SHOULDER RT MIN 2V, 06/01/2024, 13:52. FINDINGS: Image quality: This examination is limited by involuntary motion artifact. Bones: There is a moderately to prominently displaced fracture of the right humeral neck. Comminuted fracture lines are seen, including involving the humeral head. The humeral head is not dislocated from the glenoid fossa. No scapular fracture can be seen. No displaced rib fracture is seen, although motion artifact limits evaluation for such. No displaced clavicle fracture can be seen. No suspicious lytic or blastic lesions are seen. Age-appropriate bony degenerative changes are seen. Soft tissues: No pneumothorax is seen. Soft tissue swelling is seen adjacent to the fractures. IMPRESSION: Moderately to prominently displaced humeral neck fracture, with comminuted fracture lines involving the humeral head. Dictated by: Raymundo Candelario M.D. on 06/01/2024 at 14:50 Approved by: Raymundo Candelario M.D. on 06/01/2024 at 14:51 MDM Narrative Medical decision making narrative: MDM CC: Right shoulder pain Complicating co-morbidities: Takes no medications Medical records reviewed: PCP note from April 2024 reports anxiety depression and irritability Differential considered: Fracture versus sprain worse dislocation Exam documented above, pertinent findings include: Right shoulder abnormality sensation deltoid intact no elbow pain able to move seeing fingers distal radial pulse intact Imaging studies independently reviewed: Comminuted moderately displaced fracture right humeral head CT confirms displaced humeral neck fracture Consultations: 1500 Dr. Simmons updated patient's symptoms test results reviewed x-ray agrees with CT outpatient follow-up Treatments: Dilaudid, tetanus, Toradol, [place], Zofran Re-evaluations: 1600 patient re-evaluated continues to have severe pain not sure how she is going to go home. Feeling mildly nauseous. I have explained to patient that this is an outpatient procedure does not meet admission criteria. We will give her Toradol Zofran and [place] see if we can help get her pain under control. Discussion: 79-year-old female presents today with right upper extremity injury x-ray confirms fractured displaced humeral head. She has had some numbness in her hand but may moving fingers and good peripheral pulse. Orthopedic outpatient follow-up splinting. She is left-hand dominant Patient is placed in a humeral cuff brace and sling. She continues to have pain despite Dilaudid Toradol and [place]. I have explained that she does not meet admission criteria that she will need to follow-up with orthopedics this may or may not require surgery. I have discussed case with orthopedics was reviewed imaging, and have reassured patient that this does not need emergency surgery. We discussed supportive care options such as positioning and sleeping upright. She is given prescription for Percocet and Zofran. Discharge Plan Departure Patient Disposition: Home Clinical Impression: Closed fracture of head of right humerus Instructions: DI for Humeral Fracture Activity Restrictions/Additional Instructions: *You have been diagnosed with humeral head fracture *What to do: At this time I suspect that you will likely need surgery however it is not emergent today. You may find that you have to sleep sitting up right. You will need to call Orthopedics on Monday to schedule an appointment Dr. Tanja Simmons is already aware of you I recommend icing 20-30 minutes at a time and is often as possible *Continue to take medications as directed [place] 1 tablet every 4-6 hours if needed for severe pain Zofran 4 mg every 8 hours for nausea or vomiting Motrin 600 mg every 6 hours for [id number] pain *Follow up with your primary care provider in 2-3 days or call [phone] *Return to ER if you should have increasing pain or numbness or tingling or any new, worsening or concerning symptoms CONTROLLED SUBSTANCE DISCHARGE (Narcotoic/benzodiazepine/Flexeril/Phenergan) 1. You have been prescribed narcotic medications, it does have acetaminophen/Tylenol/paracetamol in it, DO NOT TAKE MORE THAN 4,00mg in 24 hours of Tylenol. TRAMADOL DOES NOT CONTAIN TYLENOL 2. Please understand that we cannot provide further refills of narcotics, benzodiazepines or controlled substances through the ED and her pain management will need to be through your provider. 3. While on these medications you cannot drive or operate heavy machinery. 4. You cannot sign legal documents or perform any duties such as this. 5. As long as you're taking opiate pain medications he should also be taking a stool softener such as Colace, Dulcolax, MiraLAX or prune juice, to help avoid constipation. Prescriptions: New oxycodone-acetaminophen [Percocet] 5-325 mg tablet 1 tab PO Q6H PRN (Reason: pain) Qty: 20 0RF ondansetron 4 mg tablet,disintegrating 4 mg PO Q8H PRN (Reason: nausea and vomiting) Qty: 10 0RF No Action epinephrine 0.3 mg/0.3 mL auto-injector 0.3 mg IM Q5-15M PRN (Reason: hypersensitivity reaction) Qty: 2 3RF Rx Instructions: do not exceed 3 doses per episode CMP Estriol vaginal 0.1% cream See Rx Instructions .ROUTE .COMPLEX Qty: 30 3RF Rx Instructions: Insert 1 gram vaginally twice weekly; ibuprofen 200 mg tablet 200 mg PO Q6H PRN (Reason: Pain (Scale Score 1-3)) oxyquinoline-sod.lauryl sulfat 0.025-0.01 % gel 1 ea vaginal .weekly Qty: 113.4 3RF Rx Instructions: Use once weekly while pessary is in situ. SporeBiotic PO meclizine 25 mg tablet 25 mg PO BID PRN (Reason: dizziness) Qty: 30 0RF vitamin B complex [B Complex-Vitamin B12] Tablet PO cholecalciferol (vitamin D3) [Vitamin D3] 50 mcg (2,000 unit) Capsule 50 mcg PO DAILY turmeric 400 mg Capsule 400 mg PO BID Referrals: [facility] [Provider Group] Yary Simmons MD [Physician] - Juan Manuel Martinez DO [Primary Care Provider] - Stand Alone Forms: Patient Portal/API
[2024-06-01] MEDS: HYDROMORPHONE 1 MG INJ SUBCUT (14:32)
[2024-06-01] MEDS: TET,DIPH,PERTUSS(ACELL),VAC/PF 0.5 ML SYRINGE IM (14:32)
--- NOTE | 2024-06-01 15:02 | DI.CT.S_ITS ---
PROCEDURE: CT UE RT WO CON INDICATIONS: humeral head fx TECHNIQUE: Noncontrast 0.75 mm thick sections acquired from the acromioclavicular joint to the inferior scapula, with coronal and sagittal reformatting. COMPARISON: [facility], CR, XR SHOULDER RT MIN 2V, 06/01/2024, 13:52. FINDINGS: Image quality: This examination is limited by involuntary motion artifact. Bones: There is a moderately to prominently displaced fracture of the right humeral neck. Comminuted fracture lines are seen, including involving the humeral head. The humeral head is not dislocated from the glenoid fossa. No scapular fracture can be seen. No displaced rib fracture is seen, although motion artifact limits evaluation for such. No displaced clavicle fracture can be seen. No suspicious lytic or blastic lesions are seen. Age-appropriate bony degenerative changes are seen. Soft tissues: No pneumothorax is seen. Soft tissue swelling is seen adjacent to the fractures. IMPRESSION: Moderately to prominently displaced humeral neck fracture, with comminuted fracture lines involving the humeral head. Dictated by: Raymundo Candelario M.D. on 06/01/2024 at 14:50 Approved by: Raymundo Candelario M.D. on 06/01/2024 at 14:51
[2024-06-01 15:50] VITALS: BP 159/76; PULSE 64; O2SAT 99
[2024-06-01] MEDS: ONDANSETRON 4 MG ODT SL (16:10)
[2024-06-01] MEDS: KETOROLAC 30 MG/ML VIAL IM (16:10)
[2024-06-01] MEDS: HYDROCODONE/ACET 5/325 TABLET 1 TAB PO (16:14)
[2024-06-01 17:10] VITALS: BP 158/72; PULSE 68; RESP 18; O2SAT 97
== END 2024-06-01 17:10 | disposition home or self-care (01) ==
PROVIDERS: Emergency Provider Emergency Medicine; Family Provider Physician Assistant; PCP Family Medicine
DX: S42.211A Unspecified displaced fracture of surgical neck of right humerus, initial encounter for closed fracture (principal); W01.0XXA Fall on same level from slipping, tripping and stumbling without subsequent striking against object, initial encounter; Z23 Encounter for immunization
CPT/HCPCS: 73030; 73200; 90471; 96372; 99284; 90715; J1170; J1885

== ENCOUNTER → 2024-06-06 11:23 | Outpatient (CLI) | payer MEDICARE, OTHER, SELFPAY ==
--- NOTE | 2024-06-06 11:26 | EKG_ITS ---
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
[2024-06-06 12:33] LABS: Add Manual Diff / Slide Review NO; Basophils Absolute Auto 100 /uL (0-100); Basophils Percent Auto 1.2 % (0-2); Eosinophils Absolute Auto 200 /uL (0-450); Eosinophils Percent Auto 1.2 % (2-4); Hematocrit 34.5 % (36-46); Hemoglobin 11.5 g/dL (12.0-16.0); Lymphocytes Absolute Auto 1300 /uL (1100-4500); Lymphocytes Percent Auto 9.9 % (25-40); Mean Corpuscular HGB Conc 33.2 % (30-36); Mean Corpuscular Hemoglobin 31.8 PG (26-34); Mean Corpuscular Volume 95.6 fL (80-100); Monocytes Absolute Auto 600 /uL (0-900); Monocytes Percent Auto 4.4 % (3-14); Neutrophils Absolute Auto 10700 /uL (1500-7000); Neutrophils Percent Auto 83.3 % (50-75); Platelet Count 399 X10^3/uL (150-400); Red Blood Cell Count 3.61 X10^6/uL (4.0-5.2); Red Cell Distribution Width 13.9 % (11.6-14.8); White Blood Cell Count 12.9 X10^3/uL (4.5-11.0)
[2024-06-06 13:13] LABS: BUN Creatinine Ratio 16.3 (6-22); Blood Urea Nitrogen 15 mg/dL (7-17); Calcium 9.4 mg/dL (8.4-10.2); Carbon Dioxide 25 mmol/L (22-32); Chloride 103 mmol/L (98-107); Estimated Glomerular Filt Rate > 60 mL/min (>60); Glucose 120 mg/dL (80-110); HEMOLYSIS < 15 (0-50); Potassium 4.3 mmol/L (3.4-5.1); Sodium 136 mmol/L (137-145)
== END ==
LOC: RESP 11:24
PROVIDERS: Family Provider Physician Assistant; PCP Family Medicine; Referring Provider Orthopaedic Surgery; Visit Provider Orthopaedic Surgery
DX: Z01.818 Encounter for other preprocedural examination (principal); Z01.812 Encounter for preprocedural laboratory examination
CPT/HCPCS: 36415; 80048; 85025; 93005

== ENCOUNTER 2024-06-23 10:23 | Emergency (ER) | payer MEDICARE, OTHER, SELFPAY ==
[2024-06-23 10:43] VITALS: BP 128/59; PULSE 71; RESP 16; TEMP 36.6; O2SAT 100; BMI 21.4
--- NOTE | 2024-06-23 10:47 | DI.US.S_ITS ---
PROCEDURE: US PERIPH VENOUS UP EXTREM RT INDICATIONS: r/o DVT, shoulder replacement 06/11, elbow swelling pain TECHNIQUE: Real-time imaging, as well as color and pulse Doppler interrogation, was performed of the upper extremity deep veins from the inferior neck to the antecubital fossa. COMPARISON: None. FINDINGS: The internal jugular vein, visualized portions of the subclavian vein, axillary, and brachial veins are free of intraluminal thrombus. Where physically possible, the veins are normally compressible. Color and pulse Doppler demonstrate normal intraluminal flow, with expected phasicity and pulsatility. Additional scanning of the cephalic and basilic veins of the superficial system demonstrates normal compressibility, without thrombus. Study is limited by decreased range of motion and surgical bandaging IMPRESSION: No findings of upper extremity deep venous thrombosis can be seen. Approved by: Cresencio Conterras M.D. on 06/23/2024 at 11:09
--- NOTE | 2024-06-23 14:02 | ED.UPPEXIN ---
HPI - Extremity Injury (Upper) <Amy Rucker PA-C - Last Filed: 06/23/24 16:22> General Chief Complaint: Extremity Injury, Upper Stated Complaint: WIC; R Arm Swelling & Warm Time Seen by Provider: 06/23/24 10:34 History of Present Illness HPI narrative: Patient is a very pleasant 79-year-old female presents to the emergency room department complaining of right upper extremity swelling, pain, dependent edema and bruising status post a right upper extremity total shoulder on 06/11/2024. Patient initially was seen in the emergency room department 06/01/2024 after she sustained a right proximal humeral fracture. She was seen and evaluated in the emergency department, discharged for follow up with Orthopedics. She then was seen by Orthopedics, and underwent the above procedure. She has been seen in follow up with Orthopedics, and now presents to the emergency room department with extreme discomfort and pain, swelling, and skin changes to the right upper extremity. Patient is concerned for possible cellulitis, she is extreme discomfort and pain, can barely move her hand due to edema, and she has extreme difficulty with extension flexion at the elbow due to soft tissue swelling. She has no other further complaints. Currently she is still in a sling. Currently at this time per her orthopedic surgeon she has not started with range of motion, she has a follow up appointment with Orthopedics on 06/24/2024, she is supposed to start physical therapy on 06/25/2024. Patient is continuing to use her hydrocodone for discomfort and pain. She does have a prescription for Percocet but the patient states she currently is not using it because she has had some nausea associated with the Percocet. She currently has no other further complaints at this time. Related Data Home Medications Medication Instructions Recorded Confirmed ibuprofen 200 mg tablet 200 mg PO Q6H PRN Pain (Scale 12/10/20 06/21/24 Score 1-3) cholecalciferol (vitamin D3) 50 50 mcg PO DAILY 06/28/22 06/21/24 mcg (2,000 unit) capsule (Vitamin D3) turmeric 400 mg capsule 400 mg PO BID 06/28/22 06/21/24 SporeBiotic PO 09/27/23 06/21/24 vitamin B complex (B tab PO B12 needed 10/12/23 06/21/24 Complex-Vitamin B12 tablet) Previous Rx's Medication Instructions Recorded epinephrine 0.3 mg/0.3 mL 0.3 mg (0.3 mL) IM Q5-15M PRN 03/14/23 injection, auto-injector hypersensitivity reaction #2 ea meclizine 25 mg tablet 25 mg PO BID PRN dizziness #30 tabs 03/20/24 ondansetron 4 mg disintegrating 4 mg PO Q8H PRN nausea and 06/01/24 tablet vomiting #10 tabs oxycodone-acetaminophen 5 mg-325 1 tab PO Q6H PRN pain #20 tabs 06/01/24 mg tablet (Percocet) CMP Estriol vaginal 0.1% cream See Rx Instructions .Route 06/21/24 .COMPLEX #30 grams oxyquinoline 0.025 %-sodium lauryl 1 ea vaginal .weekly vaginal 06/21/24 sulfate 0.01 % vaginal gel pessary #113.4 grams cephalexin 500 mg capsule 500 mg PO QID 10 days #40 caps 06/23/24 Allergies Allergy/AdvReac Type Severity Reaction Status Date / Time peanut Allergy Severe itching, Verified 06/23/24 10:10 skin reddness, nausea Review of Systems <Amy Rucker PA-C - Last Filed: 06/23/24 16:22> Review of Systems Narrative: Negative except as above Musculoskeletal Comments: right upper extremity distal dependent swelling edema status post a right total shoulder on 06/11/2024. Skin related changes associated with dependent edema associated with her surgery. Patient was concerned about possible cellulitis, Patient History <Amy Rucker PA-C - Last Filed: 06/23/24 16:22> Medical History Irritability and anger Anxiety and depression Acquired hammertoes of both feet Callus of toe Positional vertigo Change in consistency of stool Abdominal bloating Wears glasses Osteoarthritis Peanut allergy Anxiety Kyphosis Hip pain Back pain Shoulder pain Scoliosis Osteopenia Fractures (~2003) Measles Hearing loss Fibroids Bladder prolapse (~2021) Skin cancer, basal cell Postural kyphosis, thoracic region Stiff neck Segmental and somatic dysfunction of abdomen and other regions Sacral region somatic dysfunction Pelvic somatic dysfunction Lumbar region somatic dysfunction Chronic bilateral low back pain without sciatica (~1999) Dry skin Easy bruising Fatigue H/O vaginal delivery No significant medical problems Surgical History Anesthesia History of throat surgery (~1992) History of tubal ligation (~1980) History of cataract removal with insertion of prosthetic lens Family History Father History of heart disease Mother History of emphysema Grandfather History of heart disease Grandmother Cancer Social History household members: none Smoking Status: Never smoker alcohol intake: never substance use type: does not use Smoking Status: Never smoker alcohol intake frequency: holidays/special occasions only Substance Use Type: does not use Exam <Amy Rucker PA-C - Last Filed: 06/23/24 16:22> Initial Vital Signs Initial Vital Signs: Vital Signs Temperature 97.8 F 06/23/24 10:43 Pulse Rate 71 06/23/24 10:43 Respiratory Rate 16 06/23/24 10:43 Blood Pressure 128/59 L 06/23/24 10:43 Pulse Oximetry 100 06/23/24 10:43 Oxygen Delivery Method Room Air 06/23/24 10:43 Reviewed. Const General: cooperative, healthy appearing, comfortable, well developed, well groomed, acute distress, in distress and anxious Nutritional Appearance: average body habitus and well nourished Eyes General: Yes appearance normal, both eyes and all related structures Conjunctivae: conjunctivae normal Sclera: sclerae normal Pupils: PERRL EOM: EOM intact bilaterally Skin Other: Patient has skin changes associated with 3+ edema, currently does not have any blisters but she does have quite a bit of tenderness and swelling to the right lower extremity. She has a moderate amount of edema, and ecchymosis just distal to the incision where there is a dressing intact that is clean and does not show any blood. She also has a 10s unit on the proximal shoulder. Hand is quite edematous, cap refill is delayed, pulses are present but also slightly delayed. Patient has very limited active range of motion due to discomfort and pain she does hav Neuro General: patient alert, patient awake, patient oriented x3, oriented and gait normal Cranial Nerves: CN's II-XI intact bilaterally Cognition: normal cognition Speech: speech normal Gait: normal gait Extrem Other: Range of motion, strength, pulses, cap refill preserved in the upper and lower extremities. right upper extremity exam, patient recent right upper extremity total shoulder, she has a dressing intact to the incision, it is clean, no signs of blood, she has a 10s unit that is evaluated and seen to the right upper extremity. She has bruising to the right upper extremity just distal to the incision which is normal. She is some mild soft tissue swelling noted in the middle humerus and distal humerus area, and she has a moderate amount of dependent edema increasing as we go distal into the forearm and hand as it progressively increases to 3+ edema. To the point that the patient is unable to actively flex and extend the wrist, she is very limited range of motion of the hand due to substantial edema. Cap refill is preserved but is delayed. Pulses are present but they are faint. There was no signs of compartment syndrome. However she does have 3+ edema. There are some skin changes associated with a massive amount edema, she currently does not have any blisters. The area is red it is swollen it is hot it is tender. Concerns for possibly underlying secondary infection, ultrasound was done, no DVT is noted on exam. Psych Other: Appearance, mental status, speech, movement, mood, affect, attitude, thought process, content, judgment are all within normal limits. <Joana Cottrell DO - Last Filed: 06/23/24 17:35> Initial Vital Signs Initial Vital Signs: Vital Signs Temperature 97.8 F 06/23/24 10:43 Pulse Rate 71 06/23/24 10:43 Respiratory Rate 16 06/23/24 10:43 Blood Pressure 128/59 L 06/23/24 10:43 Pulse Oximetry 100 06/23/24 10:43 Oxygen Delivery Method Room Air 06/23/24 10:43 Scores <Amy Rucker PA-C - Last Filed: 06/23/24 16:22> GCS Citation: 15 Course <Amy Rucker PA-C - Last Filed: 06/23/24 16:22> Orders Ordered: ED Orders 06/23/24 10:47 US periph venous up extrem rt Stat 06/23/24 14:27 CBC Auto Diff [Complete Blood Count AUTO DIFF] Stat CMP [Comprehensive Metabolic Panel] Stat CRP [C-Reactive Protein Quant] Stat Erythrocyte Sedimentation Rate Stat 06/23/24 14:45 Blood Culture Stat Discontinued Medications Ceftriaxone Sodium 2,000 mg/ (Sodium Chloride) 100 mls @ 200 mls/hr IV NOW ONE Stop: 06/23/24 14:14 Last Infusion: 06/23/24 15:30 Dose: Infused Documented By: Admin: 06/23/24 14:57 Dose: 200 mls/hr Documented By: REANNA Consultations Consultation #1: I spoke with Dr. Read who was currently on-call for Orthopedics, took multiple pictures of the patient's upper extremity and sent these to him. So he could evaluate the arm. He called me back and was concerned since he could not evaluate the arm was an underlying infection. I discussed the exam with him. I chose to do a full workup on the patient, IV labs, CRP, ESR, IV antibiotics, when the results of her exam came back we have make a decision with the patient need to be admitted to the hospital I will discharge. her On oral antibiotics. Patient has close follow up she has an appointment with Orthopedics tomorrow. Vital Signs Vital signs: Vital Signs - 8 hr 06/23/24 10:43 06/23/24 14:45 06/23/24 14:45 Temperature 97.8 F Pulse Rate 71 72 Respiratory Rate 16 Blood Pressure 128/59 L 131/63 Pulse Oximetry 100 99 Oxygen Delivery Method Room Air 06/23/24 15:32 Temperature Pulse Rate 68 Respiratory Rate 17 Blood Pressure 148/67 H Pulse Oximetry 100 Oxygen Delivery Method reviewed <Joana Cottrell, DO - Last Filed: 06/23/24 17:35> Orders Ordered: ED Orders 06/23/24 10:47 US periph venous up extrem rt Stat 06/23/24 14:27 CBC Auto Diff [Complete Blood Count AUTO DIFF] Stat CMP [Comprehensive Metabolic Panel] Stat CRP [C-Reactive Protein Quant] Stat Erythrocyte Sedimentation Rate Stat 06/23/24 14:45 Blood Culture Stat Discontinued Medications Ceftriaxone Sodium 2,000 mg/ (Sodium Chloride) 100 mls @ 200 mls/hr IV NOW ONE Stop: 06/23/24 14:14 Last Infusion: 06/23/24 15:30 Dose: Infused Documented By: Admin: 06/23/24 14:57 Dose: 200 mls/hr Documented By: REANNA Vital Signs Vital signs: Vital Signs - 8 hr 06/23/24 10:43 06/23/24 14:45 06/23/24 14:45 Temperature 97.8 F Pulse Rate 71 72 Respiratory Rate 16 Blood Pressure 128/59 L 131/63 Pulse Oximetry 100 99 Oxygen Delivery Method Room Air 06/23/24 15:32 Temperature Pulse Rate 68 Respiratory Rate 17 Blood Pressure 148/67 H Pulse Oximetry 100 Oxygen Delivery Method MDM - Extremity Injury (Upper) <Amy Rucker PA-C - Last Filed: 06/23/24 16:22> Lab Data 06/23/24 14:27 06/23/24 14:27 Labs: Lab Results 06/23/24 Range/Units 14:27 WBC 11.5 H (4.5-11.0) X10^3/uL RBC 3.21 L (4.0-5.2) X10^6/uL Hgb 10.3 L (12.0-16.0) g/dL Hct 31.3 L (36-46) % MCV 97.6 (80-100) fL MCH 32.2 (26-34) PG MCHC 33.0 (30-36) % RDW 15.2 H (11.6-14.8) % Plt Count 378 (150-400) X10^3/uL Neut % (Auto) Not Reportable Lymph % (Auto) Not Reportable Milam % (Auto) Not Reportable Eos % (Auto) Not Reportable Baso % (Auto) Not Reportable Lymph # (Auto) Not Reportable Milam # (Auto) Not Reportable Baso # (Auto) Not Reportable Total Counted 100 Seg Neutrophils % 61.0 (38-70) % Band Neutrophils % 7.0 (3-7) % Lymphocytes % (Manual) 18.0 L (25-45) % Monocytes % (Manual) 5.0 (2-11) % Eosinophils % (Manual) 8.0 H (2-4) % Basophils % (Manual) 1.0 (0-1) % Neutrophils # (Manual) 7820 H (6004-5381) /uL RBC Morphology See below Anisocytosis 1+ H ESR 38 H (0-20) MM/HR Sodium 138 (137-145) mmol/L Potassium 3.8 (3.4-5.1) mmol/L Chloride 108 H (98-107) mmol/L Carbon Dioxide 25 (22-32) mmol/L BUN 12 (7-17) mg/dL Creatinine 0.63 (0.52-1.04) mg/dL Estimated GFR > 60 (>60) mL/min BUN/Creatinine Ratio 19.0 (6-22) Glucose 86 (80-110) mg/dL Calcium 9.4 (8.4-10.2) mg/dL Total Bilirubin 1.1 (0.2-1.3) mg/dL AST 37 H (14-36) IU/L ALT 31 (<35) IU/L Alkaline Phosphatase 86 (38-126) U/L C-Reactive Protein 0.7 (<1.0) mg/dL Total Protein 6.8 (6.3-8.2) g/dL Albumin 3.7 (3.5-5.0) g/dL Globulin 3.1 (1.7-4.1) g/dL Albumin/Globulin Ratio 1.2 (1.0-2.8) Imaging Data US - DVT: Radiologist's Impression: [address] [address] Ultrasound Report Signed Patient: Tri Morel MR#: [id number] : 1945 Acct:[id number] Age/Sex: 79 / F Date of Service: 06/23/24 Loc: ED Accession Number: [id number] Procedure: US periph venous up extrem rt Ordering Provider: Joana Cottrell D.O. PROCEDURE: US PERIPH VENOUS UP EXTREM RT INDICATIONS: r/o DVT, shoulder replacement 06/11, elbow swelling pain TECHNIQUE: Real-time imaging, as well as color and pulse Doppler interrogation, was performed of the upper extremity deep veins from the inferior neck to the antecubital fossa. COMPARISON: None. FINDINGS: The internal jugular vein, visualized portions of the subclavian vein, axillary, and brachial veins are free of intraluminal thrombus. Where physically possible, the veins are normally compressible. Color and pulse Doppler demonstrate normal intraluminal flow, with expected phasicity and pulsatility. Additional scanning of the cephalic and basilic veins of the superficial system demonstrates normal compressibility, without thrombus. Study is limited by decreased range of motion and surgical bandaging IMPRESSION: No findings of upper extremity deep venous thrombosis can be seen. Approved by: Cresencio Contreras M.D. on 06/23/2024 at 11:09 [facility] Narrative Medical decision making narrative: pleasant female 79 recent right total shoulder, done by [facility] orthopedics. Who presents to the emergency department with right upper extremity discomfort, pain, dependent edema associated with the procedure, worrisome for possible cellulitis, decreased range of motion, increasing discomfort and pain. 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 Has an appointment tomorrow with Orthopedics, as an appointment with physical therapy on Monday. Concerned due to the amount of dependent edema, swelling and discomfort and limited range of motion. Spoke with on-call ortho discussed the patient with him, sent him pictures of the patient's upper extremity. I personally decided to do a full workup on the patient, to make sure that the patient did not have any underlying infection. IV was inserted CBC all within normal limits mild elevated white count at 11.5, H and H was stable, platelets were normal. CMP electrolytes all within normal limits kidney functions within normal limits, kidney functions normal. Sed rate was mildly elevated at 38 CRP was normal patient got 2 g of IV Rocephin the patient was discharged after we reviewed all the lab work, and findings. She was discharged with oral Keflex. She can follow up with Orthopedics tomorrow . I went over with her review of her lab work, also went over range of motion of her hand, wrist, elbow. To help with her dependent edema. I chose to treat the patient with oral antibiotics and IV antibiotics to make sure the patient did not have an infection and does not become infected. Blood cultures are pending. Patient has close follow up with Orthopedics. patient was discharged in stable condition with family patient and sling. Differential diagnosis; dependent edema associated with status post right total shoulder. <Joana Cottrell, DO - Last Filed: 06/23/24 17:35> Lab Data Labs: Lab Results 06/23/24 Range/Units 14:27 WBC 11.5 H (4.5-11.0) X10^3/uL RBC 3.21 L (4.0-5.2) X10^6/uL Hgb 10.3 L (12.0-16.0) g/dL Hct 31.3 L (36-46) % MCV 97.6 (80-100) fL MCH 32.2 (26-34) PG MCHC 33.0 (30-36) % RDW 15.2 H (11.6-14.8) % Plt Count 378 (150-400) X10^3/uL Neut % (Auto) Not Reportable Lymph % (Auto) Not Reportable Milam % (Auto) Not Reportable Eos % (Auto) Not Reportable Baso % (Auto) Not Reportable Lymph # (Auto) Not Reportable Milam # (Auto) Not Reportable Baso # (Auto) Not Reportable Total Counted 100 Seg Neutrophils % 61.0 (38-70) % Band Neutrophils % 7.0 (3-7) % Lymphocytes % (Manual) 18.0 L (25-45) % Monocytes % (Manual) 5.0 (2-11) % Eosinophils % (Manual) 8.0 H (2-4) % Basophils % (Manual) 1.0 (0-1) % Neutrophils # (Manual) 7820 H (8303-5783) /uL RBC Morphology See below Anisocytosis 1+ H ESR 38 H (0-20) MM/HR Sodium 138 (137-145) mmol/L Potassium 3.8 (3.4-5.1) mmol/L Chloride 108 H (98-107) mmol/L Carbon Dioxide 25 (22-32) mmol/L BUN 12 (7-17) mg/dL Creatinine 0.63 (0.52-1.04) mg/dL Estimated GFR > 60 (>60) mL/min BUN/Creatinine Ratio 19.0 (6-22) Glucose 86 (80-110) mg/dL Calcium 9.4 (8.4-10.2) mg/dL Total Bilirubin 1.1 (0.2-1.3) mg/dL AST 37 H (14-36) IU/L ALT 31 (<35) IU/L Alkaline Phosphatase 86 (38-126) U/L C-Reactive Protein 0.7 (<1.0) mg/dL Total Protein 6.8 (6.3-8.2) g/dL Albumin 3.7 (3.5-5.0) g/dL Globulin 3.1 (1.7-4.1) g/dL Albumin/Globulin Ratio 1.2 (1.0-2.8) Discharge Plan Departure Patient Disposition: Home Clinical Impression: Edema of right upper extremity Activity Restrictions/Additional Instructions: move the arm like a showed you washcloth in the and squeeze the washcloth flex and extend at the elbow limited range of motion at the shoulder due to the fact that your orthopedist does not want to move the elbow I showed you had a put her arm in an out of the sling without moving your shoulder use that so that you can do the range of motion at the wrist arm and elbow. start with gentle massage from the distal part of her hand up into her shoulder this is also going to help with moving the fluid. You got antibiotics in the emergency room department tonight you do not need to start her oral antibiotics you can start those in the morning we reviewed all of her lab work even know you do not have a white count and everything looks normal I am still going to start her on oral antibiotics. follow up with Orthopedics tomorrow. try to elevate the arm as much as he possibly can on several pillows to help with the dependent edema. take your medications as prescribed and your pain medication as prescribed. Make sure to take your pain medication about an hour before he going to physical therapy because physical therapy is going to be painful. Prescriptions: New cephalexin 500 mg capsule 500 mg PO QID 10 Days Qty: 40 0RF No Action epinephrine 0.3 mg/0.3 mL auto-injector 0.3 mg IM Q5-15M PRN (Reason: hypersensitivity reaction) Qty: 2 3RF Rx Instructions: do not exceed 3 doses per episode ibuprofen 200 mg tablet 200 mg PO Q6H PRN (Reason: Pain (Scale Score 1-3)) SporeBiotic PO meclizine 25 mg tablet 25 mg PO BID PRN (Reason: dizziness) Qty: 30 0RF vitamin B complex [B Complex-Vitamin B12] Tablet PO oxyquinoline-sod.lauryl sulfat 0.025-0.01 % gel 1 ea vaginal .weekly Qty: 113.4 3RF Rx Instructions: Use once weekly while pessary is in situ. CMP Estriol vaginal 0.1% cream See Rx Instructions .ROUTE .COMPLEX Qty: 30 3RF Rx Instructions: Insert 1 gram vaginally twice weekly; oxycodone-acetaminophen [Percocet] 5-325 mg tablet 1 tab PO Q6H PRN (Reason: pain) Qty: 20 0RF ondansetron 4 mg tablet,disintegrating 4 mg PO Q8H PRN (Reason: nausea and vomiting) Qty: 10 0RF cholecalciferol (vitamin D3) [Vitamin D3] 50 mcg (2,000 unit) Capsule 50 mcg PO DAILY turmeric 400 mg Capsule 400 mg PO BID Referrals: Juan Manuel Martinez DO [Primary Care Provider] - Stand Alone Forms: Patient Portal/API ED Sign-out <Joana Cottrell DO - Last Filed: 06/23/24 17:35> Cosign ED Attending Cosignature Attestation: I was available for consultation.
[2024-06-23 14:40] LABS: Hematocrit 31.3 % (36-46); Hemoglobin 10.3 g/dL (12.0-16.0); Mean Corpuscular Hemoglobin 32.2 PG (26-34); Mean Corpuscular Volume 97.6 fL (80-100); Platelet Count 378 X10^3/uL (150-400); Red Blood Cell Count 3.21 X10^6/uL (4.0-5.2); Red Cell Distribution Width 15.2 % (11.6-14.8); White Blood Cell Count 11.5 X10^3/uL (4.5-11.0)
[2024-06-23 14:42] LABS: Add Manual Diff / Slide Review YES
[2024-06-23 14:45] VITALS: BP 131/63; PULSE 72; O2SAT 99
[2024-06-23 14:54] LABS: Alanine Aminotransferase 31 IU/L (<35); Albumin 3.7 g/dL (3.5-5.0); Albumin Globulin Ratio 1.2 (1.0-2.8); Alkaline Phosphatase 86 U/L (38-126); Aspartate Aminotransferase 37 IU/L (14-36); Bilirubin Total 1.1 mg/dL (0.2-1.3); Blood Urea Nitrogen 12 mg/dL (7-17); C-Reactive Protein Quant 0.7 mg/dL (<1.0); Calcium 9.4 mg/dL (8.4-10.2); Carbon Dioxide 25 mmol/L (22-32); Chloride 108 mmol/L (98-107); Estimated Glomerular Filt Rate > 60 mL/min (>60); Globulin 3.1 g/dL (1.7-4.1); Glucose 86 mg/dL (80-110); HEMOLYSIS < 15 (0-50); Potassium 3.8 mmol/L (3.4-5.1); Sodium 138 mmol/L (137-145); Total Protein 6.8 g/dL (6.3-8.2)
[2024-06-23] MEDS: cefTRIAXone 2,000 MG in SODIUM CHLORIDE 0.9% 100 ML 200 MG IV (14:57)
[2024-06-23 15:01] LABS: Erythrocyte Sedimentation Rate 38 MM/HR (0-20)
[2024-06-23 15:05] LABS: Anisocytosis 1+; Neutrophils Absolute Manual 7820 /uL (3000-5900); Total Cells Counted 100
[2024-06-23 15:32] VITALS: BP 148/67; PULSE 68; RESP 17; O2SAT 100
== END 2024-06-23 15:47 | disposition home or self-care (01) ==
PROVIDERS: Emergency Provider Physician Assistant; Family Provider Physician Assistant; PCP Family Medicine
DX: R60.0 Localized edema (principal); M25.521 Pain in right elbow; R79.89 Other specified abnormal findings of blood chemistry; Z96.611 Presence of right artificial shoulder joint
CPT/HCPCS: 36415; 80053; 85007; 85025; 85651; 86140; 87040; 93971; 96365; 99284; J0696

== ENCOUNTER → 2024-09-24 10:42 | Outpatient (CLI) | payer MEDICARE, OTHER, SELFPAY ==
--- NOTE | 2024-09-24 10:43 | DI.US.S_ITS ---
PROCEDURE: US ARTERIAL DUPLEX LE BI INDICATIONS: BILATERAL TOE REDNESS AND PAIN TECHNIQUE: Color and pulse Doppler interrogation was performed of both lower extremity arterial systems, with image documentation. COMPARISON: None. FINDINGS: Right lower extremity: Common femoral artery: 76 cm/sec, with triphasic flow. Deep femoral artery: 61 cm/sec, with triphasic flow. Proximal superficial femoral artery: 74 cm/sec, with triphasic flow. Mid superficial femoral artery: 69 cm/sec, with triphasic flow. Distal superficial femoral artery: 72 cm/sec, with triphasic flow. Popliteal artery: 62 cm/sec, with triphasic flow. Posterior tibial artery: 15 cm/sec, with biphasic flow. Anterior tibial artery/dorsalis pedis: 59 cm/sec, with triphasic flow. Moore-scale imaging description: Mild degree of plaque throughout the right lower extremity arterial system. Left lower extremity: Common femoral artery: 106 cm/sec, with triphasic flow. Deep femoral artery: 76 cm/sec, with triphasic flow. Proximal superficial femoral artery: 83 cm/sec, with triphasic flow. Mid superficial femoral artery: 66 cm/sec, with triphasic flow. Distal superficial femoral artery: 74 cm/sec, with triphasic flow. Popliteal artery: 59 cm/sec, with triphasic flow. Posterior tibial artery: 63 cm/sec, with triphasic flow. Anterior tibial artery/dorsalis pedis: 82 cm/sec, with biphasic flow. Moore-scale imaging description: Mild degree of plaque throughout the left lower extremity arterial system. IMPRESSION: No hemodynamically significant stenosis involving bilateral lower extremity arteries. Dictated by: Marcelino Morejon M.D. on 09/24/2024 at 17:05 Approved by: Marcelino Morejon M.D. on 09/24/2024 at 17:07
== END ==
PROVIDERS: Family Provider Physician Assistant; PCP Family Medicine; Referring Provider Family Medicine; Visit Provider Family Medicine
DX: L53.9 Erythematous condition, unspecified (principal); M79.676 Pain in unspecified toe(s)
CPT/HCPCS: 93925

== ENCOUNTER → 2024-10-02 13:15 | Outpatient (CLI) | payer MEDICARE, OTHER, SELFPAY ==
--- NOTE | 2024-10-02 13:16 | DI.US.S_ITS ---
PROCEDURE: US VENOUS INSUFFICIENCY BILAT INDICATIONS: VENOUS INSUFFIENCY TECHNIQUE: Real time scanning was performed of the lower extremity venous system, with imaging documentation, as well as Color and pulse Doppler interrogation. COMPARISON: None. FINDINGS: RIGHT LOWER EXTREMITY: The deep veins are normally compressible, and free of intraluminal thrombus. Color and pulse Doppler demonstrate normal intravascular flow. There is normal augmentation with distal compression maneuver. Greater saphenous vein (GSV): Normally 4 mm or less in diameter, with any reflux less than 0.5 seconds. Saphenofemoral junction (SFJ): 3 mm. No reflux. Proximal GSV: 2 mm. No reflux. Mid GSV: 1 mm. No reflux. Distal GSV: 1 mm. No reflux. Calf GSV: 1 mm, and no reflux. Anterior accessory GSV (AAGSV): Anatomic variant not present across anterior thigh. Small saphenous vein (SSV): Posterior calf, draining into popliteal vein. Posterior calf: 1 mm. No reflux. Vein of Giacomini (posterior thigh connection between GSV and SSV): Anatomic variant not seen. Motion Study Engineer veins: Calf: Location lower calf, diameter 2 mm with reflux time 2.5 seconds. LEFT LOWER EXTREMITY: The deep veins are normally compressible, and free of intraluminal thrombus. Color and pulse Doppler demonstrate normal intravascular flow. There is normal augmentation with distal compression maneuver. Greater saphenous vein (GSV): Normally 4 mm or less in diameter, with any reflux less than 0.5 seconds. Saphenofemoral junction (SFJ): 3 mm. No reflux. Proximal GSV: 1 mm. No reflux. Mid GSV: 2 mm. No reflux. Distal GSV: 1 mm. No reflux. Calf GSV: 1 mm. No reflux. Anterior accessory GSV (AAGSV): Anatomic variant not present across anterior thigh. Small saphenous vein (SSV): Posterior calf, draining into popliteal vein. Posterior calf: 1 mm. No reflux. Vein of Giacomini (posterior thigh connection between GSV and SSV): Anatomic variant not seen. IMPRESSION: 1. No evidence of venous insufficiency involving bilateral GSV in SSV 2. Single analyst business analysis within the right lower calf demonstrating venous insufficiency. Dictated by: Marcelino Morejon M.D. on 10/03/2024 at 9:29 Approved by: Marcelino Morejon M.D. on 10/03/2024 at 11:11
== END ==
PROVIDERS: Family Provider Physician Assistant; PCP Family Medicine; Referring Provider Family Medicine; Visit Provider Family Medicine
DX: I87.2 Venous insufficiency (chronic) (peripheral) (principal); L53.9 Erythematous condition, unspecified
CPT/HCPCS: 93970

== ENCOUNTER → 2024-10-11 12:25 | Outpatient (CLI) | payer MEDICARE, OTHER, SELFPAY ==
--- NOTE | 2024-10-11 12:26 | DI.RAD.S_ITS ---
PROCEDURE: XR DEXA AXIAL SKELETON INDICATIONS: unusual fracture of shoulder COMPARISON: Located Within [facility], CR, XR DEXA AXIAL SKELETON, 12/03/2020, 13:17. FINDINGS: Lumbar Spine: Bone mineral density 0.983 g/cm2, T score -0.6. There is interval 0.9 percent decrease in total lumbar spine bone mineral density. Left Femoral Neck: Bone mineral density 0.620 g/cm2, T score -2.1. There is interval 1.7 percent decrease in left femoral neck bone mineral density. Left Hip: Bone mineral density 0.720 g/cm2, T score -1.8. There is interval 3.5 percent decrease in left hip bone mineral density. Fracture Risk Calculation (when applicable): 10-year fracture risk of a major osteoporotic fracture 14 percent and of a hip fracture 4.1 percent. (T score greater or equal to -1.0 to: NORMAL) (T score from -1.1 to -2.4: OSTEOPENIA) (T score less than or equal to -2.5: OSTEOPOROSIS) IMPRESSION: Osteopenia with increased 10 year fracture risk. Follow-up guidelines as follows: Osteoporosis: Consider a repeat DEXA and Vertebral Fracture Assessment (VFA) exam in 2 years or sooner if medically necessary, to reassess this patient's status. Osteopenia: Consider a repeat DEXA in 2-3 years to reassess this patient's status, or if there is a new clinical indication. Normal: Consider a repeat DEXA in 5 years or sooner, or if there is a new clinical indication. All treatment decisions require clinical judgment and consideration of individual patient factors, including patient preferences, comorbidities, previous drug use, risk factors not captured in the FRAX model (e.g., frailty, falls, vitamin D deficiency, increased bone turnover, interval significant decline in bone density ) and possible under- or over-estimation of fracture risk by FRAX. In addition, the NOF Guide recommends that FDA-approved medical therapies be considered in postmenopausal women and men age >= 50 years with a: * Hip or vertebral (clinical or morphometric) fracture * T-score of <=-2.5 at the spine or hip * Ten-year fracture probability by FRAX of >= 3% for hip fracture or >=20% for major osteoporotic fracture. Dictated by: Wolfgang Beltre M.D. on 10/11/2024 at 14:03 Approved by: Wolfgang Beltre M.D. on 10/11/2024 at 14:05
== END ==
PROVIDERS: Family Provider Physician Assistant; PCP Family Medicine; Referring Provider Family Medicine; Visit Provider Family Medicine
DX: M81.0 Age-related osteoporosis without current pathological fracture (principal)
CPT/HCPCS: 77080

== ENCOUNTER → 2024-12-18 16:13 | Outpatient (CLI) | payer MEDICARE, OTHER, SELFPAY ==
--- NOTE | 2024-12-18 16:14 | DI.MG.S_ITS ---
MM screening mammo BI: 12/18/2024. BI-RADS: 2 CLINICAL: 79-year old female for bilateral screening mammogram. Tyrer-Cuzick lifetime risk of 2.6%. No personal or first-degree family history of breast cancer. Current reported family history of breast cancer: maternal aunt. The patient had prior breast biopsies. PRIOR EXAMS 07/20/2023, 06/08/2022, 05/13/2021, 03/25/2020, 12/03/2018, 11/09/2018, 10/13/2017, 07/22/2016. MAMMOGRAPHY TECHNIQUE: 2D and 3D (tomosynthesis) digital mammographic views obtained, with additional images as needed for full coverage. Current study was also evaluated with a Computer Aided Detection (CAD) system. DENSITY B. There are scattered areas of fibroglandular density. MAMMOGRAPHY FINDINGS Right: Biopsy markers present on the right. Benign-appearing calcification noted on the right. There are no suspicious masses, calcifications, or other findings in the breast. No significant change from comparison. Left: Benign-appearing calcification noted on the left. There are no suspicious masses, calcifications, or other findings in the breast. No significant change from comparison. IMPRESSION: * No evidence of malignancy with benign findings. RECOMMENDATIONS Bilateral * Annual screening mammography. OVERALL ASSESSMENT CATEGORY BI-RADS-2: Benign. The [employer] recommends annual screening mammography beginning at age 40 for women with average risk of breast cancer. ELECTRONICALLY SIGNED: Estella Alexis M.D. on 12/19/2024 at 05:13:19 PM PT Interpreting Station ID: [id number]
== END ==
PROVIDERS: Family Provider Physician Assistant; PCP Family Medicine; Referring Provider Family Medicine; Visit Provider Family Medicine
DX: Z12.31 Encounter for screening mammogram for malignant neoplasm of breast (principal); Z80.3 Family history of malignant neoplasm of breast
CPT/HCPCS: 77063; 77067

== ENCOUNTER → 2025-03-08 10:34 | Outpatient (CLI) | payer MEDICARE, OTHER, SELFPAY ==
--- NOTE | 2025-03-08 10:37 | DI.RAD.S_ITS ---
PROCEDURE: XR WRIST LT MIN 3V INDICATIONS: r/o fracture TECHNIQUE: 4 views of the wrist were acquired. COMPARISON: None. FINDINGS AND IMPRESSION: No acute displaced fracture or dislocation. No suspicious soft tissue calcifications. If there is high concern for occult injury, consider repeat radiography in about 7 days or cross-sectional imaging. Dictated by: Víctor Heller M.D. on 03/08/2025 at 10:05 Approved by: Víctor Heller M.D. on 03/08/2025 at 10:05
== END ==
PROVIDERS: Family Provider Physician Assistant; PCP Family Medicine; Referring Provider Family Medicine; Visit Provider Chiropractor
DX: S63.502A Unspecified sprain of left wrist, initial encounter (principal); X58.XXXA Exposure to other specified factors, initial encounter
CPT/HCPCS: 73110

== ENCOUNTER 2025-07-21 15:15 | Outpatient (RCR) | payer MEDICARE, OTHER, SELFPAY ==
--- NOTE | 2025-06-11 17:25 | PT.OIE ---
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 Dry skin Easy bruising Fatigue Fibroids Fractures (~2003) H/O vaginal delivery Hearing loss Hip pain Irritability and anger Kyphosis Lumbar region somatic dysfunction Measles No significant medical problems Osteoarthritis Osteopenia Osteopenia determined by x-ray Osteoporosis Peanut allergy Pelvic somatic dysfunction Positional vertigo Postural kyphosis, thoracic region Radial nerve dysfunction Sacral region somatic dysfunction Scoliosis Segmental and somatic dysfunction of abdomen and other regions Shoulder pain Skin cancer, basal cell Somatic dysfunction of lower extremity Stiff neck Toe erythema Toe pain, chronic Upper extremity somatic dysfunction Wears glasses Wrist weakness Past Surgical History (Last Updated 08/23/24 @ 16:56 by Juan Manuel Martinez DO) Anesthesia History of cataract removal with insertion of prosthetic lens History of throat surgery (~1992) History of tubal ligation (~1980) Status post replacement of right shoulder joint Visit Care Team Role Provider Type Juan Manuel Martinez DO Primary Care Provider Physician Specialty: Family Practice Address: [address] [place] [address], [id number] Email: Desi Suh PA-C Family Provider Non-Staff Specialty: Medical Address: [address] [place] [address] [place], [facility] Email: [email or web address] Nate Flynn MD Attending Provider Physician Referring Provider Specialty: Ear, Nose, Throat Address: [address] [place] [address], [id number] Email: [email or web address] Physical Therapy Initial Evaluation PT OP: Balance, Vestibular, Neuro Start: 06/11/25 13:32 Freq: Status: Active Protocol: Document 06/11/25 10:45 DCW (Rec: 06/11/25 13:46 DCW [id number]) Out-Patient Physical Therapy Visit Information Visit Information Visit Type Initial Evaluation Visit Start Time 10:45 Visit Stop Time 11:30 Visit Number 1 Number of OUTPLACEMENT CONSULTANT Visits 0 Progress Note Due 07/11/25 Evaluation Information Evaluation Date 06/11/25 Current Condition History of Current Condition Onset Date 10 year history Current Complaints Nausea/dizziness when lying down or sitting up from supine History of Current Pt is a 80 year old female complaining of a 10 year Condition history of motion-induced vertigo and nausea. Pt reports episodes last a few seconds. Symptoms are provoked by lying down flat or sitting up, like when trying to do sit-ups. Pt reports she has just pretty much avoided anything that caused her symptoms for the past ten years, but when she off-handedly brought it up to the ENT, he wanted her to be seen for vestibular rehab due to increased falls risk. Pt also underwent a VNG, which, per notes from Dr Flynn, showed mild possible central origins of her vertigo, as well as positive cVEMP testing. OP-PT Subjective Patient Comments Patient Comments I really haven't been too worried about it, but Dr Flynn thought you should check me out. Vestibular Assessment Auditory Tests Bridges Test Within normal limits Rinne Test Negative Air Conduction Equal Results Visual Testing Smooth Pursuits Mild saccadic movement Horizontal Smooth Pursuits Mild saccadic movement Vertical Gaze Evoked Positive Nystagmus With Fixation Heave Test Positive Bilateral Thrust Head Positive Bilateral Positional Testing [place]-Hallpike Negative Left,Negative Right Rolling Test Negative Left,Negative Right Comments Vestibular Comments Pt notes mild dizziness and nausea in left [place]-Hallpike position. Pt exhibits 1? direction-changing gaze-evoked nystagmus . Canalithic Repositioning BPPV Treatment Blayne Affected Canal(s) Left posterior? Reps x1 Comments Modified [facility] Physical Therapy Assessment Rehab Potential Rehabilitation Good Potential Evaluation Complexity Number of Personal 3 or More Factors/ Comorbidities Number of Body 4 or More Systems Impaired Clinical Unstable Presentation at Evaluation Impairments Impairments Balance,Functional Activities,Functional Mobility, Vestibular,Visual Motor Goals Two Impairment Pt does not have an appropriate home exercise program Show Jumping Instructor Goal (LTG) Pt to be independent and complaint with an appropriate vestibular exercise program LTG Duration 09/09/25 One Impairment Pt experiences dizziness and nausea when laying back or sitting up Show Jumping Instructor Goal (LTG) Pt to report elimination of symptoms with positional changes LTG Duration 09/09/25 Assessment Summary Assessment Pt presents with a seemingly atypical vestibular evaluation. Pt displays 1? direction-changing gaze evoked nystagmus, which could indicate central causes of vertigo, however may also be an age-related symptom. Positive bilateral thrust and heave tests are also indicative of age-related vestibular decline. Pt positional testing was negative, however pt did complain of increased dizziness and nausea in left [place]- Hallpike, although there was no associated nystagmus present. Due to the long history of pt's symptoms, pt may be presenting with an atypical BPPV presentation, either with ability to suppress nystagmus, or with the gaze-evoked nystagmus covering possible BPPV-related nystagmus. Due to increased subjective symptoms during left Freeman-Hallpike, a left-sided modified Blayne maneuver was performed. Pt experienced increased subjective symptoms in the first and third position. Pt should return for follow-up with-in the next week, for further positional testing, CRM as indicated, and other vestibular testing and rehabilitation as needed. If pt does not progress with vestibular rehab, may need to further discuss potential referral for neuro. Physical Therapy Plan Frequency and Duration Frequency of 2x/Week Treatment Plan of Care Start 06/11/25 Date Plan of Care End 09/09/25 Date Therapeutic Interventions Therapeutic Balance Training,Canalithic Repositioning,Home Exercise Interventions Program,Manual Therapy,Neuromuscular Re-education, Patient/Caregiver Education,Self-Care/Home Management, Soft Tissue Mobilization,Therapeutic Activities, Therapeutic Exercises,Vestibular Rehabilitation Next Visit Focus/Plan Next Note Type Treatment Note Next Visit Plan Positional testing, CRM as indicated, vestibular rehabilitation exercises, adaptation/habituation exercises
--- NOTE | 2025-06-17 10:39 | PT.OTN ---
Current Diagnoses Vertigo of central origin (06/17/25) Physical Therapy Treatment Note PT OP: Balance, Vestibular, Neuro Start: 06/11/25 13:32 Freq: Status: Active Protocol: Document 06/17/25 09:47 DCW (Rec: 06/17/25 10:39 DCW [id number]) Out-Patient Physical Therapy Visit Information Visit Information Visit Type Treatment Note Visit Start Time 09:47 Visit Stop Time 10:30 Visit Number 2 Number of AIRCRAFT MOTOR MECHANIC Visits 0 Progress Note Due 07/11/25 Evaluation Information Evaluation Date 06/11/25 OP-PT Subjective Patient Comments Patient Comments Pt reports she doesn't really feel any different compared to last week. Vestibular Assessment Visual Testing Feroz String Test WNL Convergence Test 40 Comments Vestibular Comments Questionably positive right Basye-Hallpike. Cover/uncover: eye movement without fixation Neuro Re-Education Treatment Vestibular Rehabilitation Corrective Saccades Details Eyes, then head Distance From Target Arm's length Speed as tolerated Position Seated X2 Viewing Details Target and head moving opposite directions Distance From Target Arm's length Speed as tolerated Position Seated X1 Viewing Details Static target, head turns Distance From Target Arm's length Speed as tolerated Position Seated VOR Retraining Details Head and target moving together Distance From Target Arm's length Speed as tolerated Position Seated Physical Therapy Assessment Impairments Impairments Balance,Functional Activities,Functional Mobility, Vestibular,Visual Motor Goals Two Impairment Pt does not have an appropriate home exercise program Mold Design Engineer Goal (LTG) Pt to be independent and complaint with an appropriate vestibular exercise program LTG Duration 09/09/25 One Impairment Pt experiences dizziness and nausea when laying back or sitting up Mold Design Engineer Goal (LTG) Pt to report elimination of symptoms with positional changes LTG Duration 09/09/25 Assessment Summary Assessment Right Freeman-Hallpike today showed some apparent up- beating nystagmus for 4-5 beats. Pt blinked a few times , difficult to see if there was a rotational component. Performed right modified Blayne maneuver. Still unclear if pt's symptoms are largely central or potential BPPV , unusual combination of symptoms more suggestive of central due to gaze-evoked nystagmus. Will perform further testing and vestibular treatment next visit Physical Therapy Plan Frequency and Duration Frequency of 2x/Week Treatment Plan of Care Start 06/11/25 Date Plan of Care End 09/09/25 Date Therapeutic Interventions Therapeutic Balance Training,Canalithic Repositioning,Home Exercise Interventions Program,Manual Therapy,Neuromuscular Re-education, Patient/Caregiver Education,Self-Care/Home Management, Soft Tissue Mobilization,Therapeutic Activities, Therapeutic Exercises,Vestibular Rehabilitation Next Visit Focus/Plan Next Note Type Treatment Note Next Visit Plan Positional testing, CRM as indicated, vestibular rehabilitation exercises, adaptation/habituation exercises
--- NOTE | 2025-06-20 10:33 | PT.OTN ---
Current Diagnoses Vertigo of central origin (06/20/25) Physical Therapy Treatment Note PT OP: Balance, Vestibular, Neuro Start: 06/11/25 13:32 Freq: Status: Active Protocol: Document 06/20/25 09:45 DCW (Rec: 06/20/25 10:30 DCW [id number]) Out-Patient Physical Therapy Visit Information Visit Information Visit Type Treatment Note Visit Start Time 09:45 Visit Stop Time 10:30 Visit Number 3 Number of BUSINESS INTELLIGENCE MANAGER Visits 0 Progress Note Due 07/11/25 Evaluation Information Evaluation Date 06/11/25 OP-PT Subjective Patient Comments Patient Comments Pt admits she doesn't do her HEP as often as she should , admits it is probably psychological, because it makes me just slightly nauseated. Neuro Re-Education Treatment Balance Activities Balance Challenges Comments Narrowing DARNELL, addition of foam, eyes closed, head turns Vestibular Rehabilitation Corrective Saccades Details Eyes, then head Distance From Target Arm's length Speed as tolerated Position Seated X2 Viewing Details Target and head moving opposite directions Distance From Target Arm's length Speed as tolerated Position Seated X1 Viewing Details Static target, head turns Distance From Target Arm's length Speed as tolerated Position Seated VOR Retraining Details Head and target moving together Distance From Target Arm's length Speed as tolerated Position Seated Physical Therapy Assessment Impairments Impairments Balance,Functional Activities,Functional Mobility, Vestibular,Visual Motor Goals Two Impairment Pt does not have an appropriate home exercise program Pediatric Radiologist Goal (LTG) Pt to be independent and complaint with an appropriate vestibular exercise program LTG Duration 09/09/25 One Impairment Pt experiences dizziness and nausea when laying back or sitting up Fci Goal (LTG) Pt to report elimination of symptoms with positional changes LTG Duration 09/09/25 Assessment Summary Assessment Reviewed oculomotor HEP exercises, pt required verbal cues for X2 and corrective saccades, but overall did well. Spent time focusing on balance and ways to challenge her balance at home. Would recommend pt work on independent HEP, return for follow-up in 3-4 weeks to determine if she has progressed. Also once again discussed possibility of follow-up with Neurology due to central findings on VNG, but pt still hesitant to go . Physical Therapy Plan Frequency and Duration Frequency of 2x/Week Treatment Plan of Care Start 06/11/25 Date Plan of Care End 09/09/25 Date Therapeutic Interventions Therapeutic Balance Training,Canalithic Repositioning,Home Exercise Interventions Program,Manual Therapy,Neuromuscular Re-education, Patient/Caregiver Education,Self-Care/Home Management, Soft Tissue Mobilization,Therapeutic Activities, Therapeutic Exercises,Vestibular Rehabilitation Next Visit Focus/Plan Next Note Type Treatment Note Next Visit Plan Positional testing, CRM as indicated, vestibular rehabilitation exercises, adaptation/habituation exercises
--- NOTE | 2025-07-21 16:07 | PT.OPDS ---
Current Diagnoses Vertigo of central origin (07/21/25) Visit Care Team Role Provider Type Juan Manuel Martinez DO Primary Care Provider Physician Specialty: Family Practice Address: [facility], [address] Email: Desi Suh PA-C Family Provider Non-Staff Specialty: Medical Address: [address] [place] [address], [place], [facility] Email: [email or web address] Nate Flynn MD Attending Provider Physician Referring Provider Specialty: Ear, Nose, Throat Address: [address] [place] [address], [facility] Email: [email or web address] Visit Number Visit Number 4 Discharge Summary PT OP: Balance, Vestibular, Neuro Start: 06/11/25 13:32 Freq: Status: Active Protocol: Document 07/21/25 15:15 DCW (Rec: 07/21/25 16:07 DCW [id number]) Out-Patient Physical Therapy Visit Information Visit Information Visit Type Discharge Summary Visit Start Time 15:15 Visit Stop Time 16:00 Visit Number 4 Number of POLE MAKER Visits 0 Progress Note Due 07/11/25 Evaluation Information Evaluation Date 06/11/25 OP-PT Subjective Patient Comments Patient Comments I don't know that I'm feeling all that different. Notes that the X2 oculomotor exercise is still the most challenging. Neuro Re-Education Treatment Balance Activities SLS Details SLS Surface Firm Dynamic Gait Details Hallway ambulation Comments Head turns (Horiz, Vert, Diagonals, Circles) Tandem Amb Vestibular Rehabilitation X1 Viewing Details Static target, head turns Distance From Target 6 feet Speed 90 bpm Position Standing on AirEx Physical Therapy Assessment Impairments Impairments Balance,Functional Activities,Functional Mobility, Vestibular,Visual Motor Goals Two Impairment Pt does not have an appropriate home exercise program Automotive Brake Adjuster Goal (LTG) Pt to be independent and complaint with an appropriate vestibular exercise program LTG Duration 09/09/25 One Impairment Pt experiences dizziness and nausea when laying back or sitting up Penitentiary Goal (LTG) Pt to report elimination of symptoms with positional changes LTG Duration 09/09/25 Assessment Summary Assessment Pt has been doing well with HEP, but remains largely unchanged with her subjective symptoms. Pt symptoms do not appear to be vestibular in origin. Pt agreeable to discharge at this time. Physical Therapy Plan Discharge Physical Therapy Discharge Reasons Plateau in Progress Next Visit Focus/Plan Next Note Type Discharge Summary
== END 2025-07-22 08:40 | disposition home or self-care (01) ==
LOC: PHYS 15:15
PROVIDERS: Family Provider Physician Assistant; PCP Family Medicine; Referring Provider Otolaryngology; Visit Provider Otolaryngology
DX: H81.4 Vertigo of central origin (principal)
CPT/HCPCS: 95992; 97112; 97140; 97163